=== PATIENT | male | born 1955 | race Hispanic/Latino ===

== ENCOUNTER 2021-04-19 08:59 | Observation (INO) | payer MEDICARE ==
[2021-04-19] MEDS ORDERED: NITROGLYCERIN 0.4 MG TAB SUBL SL ONE (09:28)
[2021-04-19] MEDS ORDERED: SODIUM CHLORIDE 0.9% 1000 ML 1,000 ML IV ONE (09:28)
[2021-04-19] MEDS ORDERED: LORazepam 2 MG/ML VIAL IV ONE (09:29)
--- NOTE | 2021-04-19 09:35 | Emergency Department Report ---
ED Chest Pain HPI - General Chief Complaint: Chest Pain Stated Complaint: CHEST PAIN Time Seen by Provider: 04/19/21 09:22 Source: EMS Mode of arrival: Stretcher Limitations: No Limitations - History of Present Illness Initial Comments: Patient presents secondary to chest pain. He is having left-sided chest pain. He describes an aching pain. It is in the left lateral chest. The pain does not radiate or migrate. It is not exertional, positional, or pleuritic. He does however state that this is similar to the pain he had when he had a heart attack decades ago. He is not recently seen cardiology. He has had no recent cardiac evaluation. Patient states that he had a heart attack approximately 35 years ago. He is 65. Patient states that this is the same pain he had. He is not having left arm pain. He has no nausea or vomiting. He does not feel short of breath. EMS administered aspirin and nitro. This did not alleviate the pain. He states that it started sometime last night or into this morning and has been constant. Severity scale (0 -10): 10 - Related Data Allergies Allergy/AdvReac Type Severity Reaction Status Date / Time No Known Allergies Allergy Verified 04/19/21 09:15 Heart Score - HEART Score History: Slightly suspicious EKG: Non-specific Age: > 65 Risk factors: > 3 risk factors or hx of atherosclerotic disease Troponin: < normal limit HEART Score: 5 - EKG Read Time Time EKG Completed: 09:09 EKG Read Time: 09:23 ED Review of Systems ROS: Stated complaint: CHEST PAIN Other details as noted in HPI Comment: All other systems reviewed and negative Constitutional: denies: fever Eyes: denies: vision change ENT: denies: throat pain Respiratory: denies: cough Cardiovascular: as per HPI Endocrine: denies: unexplained weight loss Gastrointestinal: denies: abdominal pain Genitourinary: denies: dysuria Musculoskeletal: denies: back pain Skin: denies: rash Neurological: denies: headache Hematological/Lymphatic: denies: easy bruising ED Past Medical Hx - Past Medical History Previous Medical History?: Yes Hx Hypertension: Yes Hx Heart Attack/AMI: Yes Hx COPD: Yes Additional medical history: [place]. Pancreatitis - Surgical History Past Surgical History?: Yes Additional Surgical History: cardiac stents - Family History Family history: hypertension - Social History Smoking Status: Never Smoker Substance Use Type: None, Other (Patient is an alcoholic. Last drink was 7 days ago.) ED Physical Exam - General Limitations: No Limitations, Other (Pulse ox noted and normal) General appearance: alert, in no apparent distress - Head Head exam: Present: atraumatic, normocephalic - Eye Eye exam: Present: normal appearance, PERRL, EOMI - ENT ENT exam: Present: normal orophraynx, normal external ear exam - Neck Neck exam: Present: normal inspection. Absent: meningismus - Respiratory Respiratory exam: Present: normal lung sounds bilaterally. Absent: respiratory distress - Cardiovascular Cardiovascular Exam: Present: regular rate, normal rhythm - GI/Abdominal GI/Abdominal exam: Present: soft. Absent: distended, tenderness - Extremities Exam Extremities exam: Present: normal capillary refill. Absent: pedal edema, calf tenderness - Back Exam Back exam: Absent: CVA tenderness (R), CVA tenderness (L) - Neurological Exam Neurological exam: Present: alert, oriented X3, CN II-XII intact, normal gait, other (Diffuse tremor is noted). Absent: motor sensory deficit - Psychiatric Psychiatric exam: Present: normal affect, normal mood - Skin Skin exam: Present: warm, dry ED Course Vital Signs 04/19/21 04/19/21 04/19/21 09:07 09:12 09:15 Temperature Pulse Rate 65 60 60 Respiratory 18 10 L Rate Blood Pressure Blood Pressure 193/110 [Right] O2 Sat by Pulse 98 99 Oximetry 04/19/21 04/19/21 04/19/21 09:27 09:29 09:31 Temperature 98.1 F Pulse Rate 53 L Respiratory 9 L Rate Blood Pressure 170/89 Blood Pressure [Right] O2 Sat by Pulse 98 99 Oximetry 04/19/21 09:45 Temperature Pulse Rate 54 L Respiratory 14 Rate Blood Pressure 148/80 Blood Pressure [Right] O2 Sat by Pulse 98 Oximetry - Reevaluation(s) Reevaluation #1: 04/19/21 09:35 EKG have been noted. Labs were ordered. Old records reviewed. Reevaluation #2: 04/19/21 12:27 Repeat troponin has been noted. Heart score is 5. We will proceed with admission. CHIRAG score - Chirag Score Age > 65: (1) Yes Aspirin use within the Past 7 Days: (0) No 3 or more CAD Risk Factors: (1) Yes 2 or more Angina events in past 24 hrs: (0) No Known CAD with more than 50% Stenosis: (0) No Elevated Cardiac Markers: (0) No ST Deviation Greater than 0.5mm: (0) No CHIRAG Score: 2 ED Medical Decision Making - Lab Data Result diagrams: 04/19/21 09:48 04/19/21 09:48 Rhythm strip: Sinus bradycardia without ectopy per monitor observe 10 seconds. - EKG Data -: EKG Interpreted by Me - EKG Data When compared to previous EKG there are: previous EKG unavailable 04/19/21 09:57 0909-EKG shows sinus bradycardia 59. Intervals are normal including a QRS of 93 and a QT corrected of 131. Patient has no ST elevation to suggest STEMI. There is no ST depression suggestive of ischemia. There is T wave flattening in 1 and aVL. Patient has T wave flattening in V1 and V2. There is no old EKG for comparison. - Radiology Data Radiology results: report reviewed - Medical Decision Making Patient presented secondary to left-sided chest pain. Etiology for this is unclear. He does have an elevated heart score and risk for ACS although there is no evidence of STEMI or NSTEMI at this time. He does not have history of travel or immobility suggestive of pulmonary embolism. There was no radiographic evidence of pneumonia or pneumothorax. He does not have a pulse deficit or wide mediastinum that was suggest aortic dissection. Case was discussed with the hospitalist who will admit. Critical care attestation.: If time is entered above; I have spent that time in minutes in the direct care of this critically ill patient, excluding procedure time. ED Disposition Clinical Impression: Left-sided chest pain Disposition: ADMITTED INPATIENT Is pt being admited?: Yes Condition: Stable
--- NOTE | 2021-04-19 09:55 | XRay Report ---
CHEST 1 VIEW 04/19/2021 8:45 AM INDICATION / CLINICAL INFORMATION: cp. COMPARISON: None available. FINDINGS: SUPPORT DEVICES: None. HEART / MEDIASTINUM: No significant abnormality. LUNGS / PLEURA: No significant pulmonary or pleural abnormality. No pneumothorax. ADDITIONAL FINDINGS: No significant additional findings. IMPRESSION: 1. No acute findings. Signer Name: Kuldeep Clarke DO Signed: 04/19/2021 9:51 AM Workstation Name: [id number]
[2021-04-19] MEDS ORDERED: THIAMINE 100 MG in SODIUM CHLORIDE 0.9% 50 ML IV ONE (10:30)
[2021-04-19 10:42] LABS: Basophils % (Auto) 0.4 % (0.0-1.8); Eosinophils # (Auto) 0.1 K/mm3 (0.0-0.4); Eosinophils % (Auto) 1.7 % (0.0-4.3); Hematocrit 36.3 % (35.5-45.6); Lymphocytes # (Auto) 0.9 K/mm3 (1.2-5.4); Lymphocytes % (Auto) 14.2 % (13.4-35.0); Mean Corpuscular HGB Conc 33 % (32-34); Mean Corpuscular Volume 96 fl (84-94); Monocytes # (Auto) 0.6 K/mm3 (0.0-0.8); Platelet Count 279 K/mm3 (140-440); Red Blood Count 3.77 M/mm3 (3.65-5.03)
[2021-04-19 11:10] LABS: Alanine Aminotransferase 12 units/L (7-56); Albumin 4.1 g/dL (3.9-5); Blood Urea Nitrogen 11 mg/dL (9-20); Calcium 9.5 mg/dL (8.4-10.2); Hemolysis Index 80
[2021-04-19 11:11] LABS: BUN/Creatinine Ratio 22
--- NOTE | 2021-04-19 12:31 | History and Physical Report ---
History of Present Illness Date of examination: 04/19/21 Date of admission: April 19, 2021 Chief complaint: Chest pain since a.m. History of present illness: 65-year-old male with history of hypertension, coronary artery disease, COPD and episode of pancreatitis, also history of cardiac stents presents with chest pain since a.m. Chest pain is retrosternal. Nonradiating. No diaphoresis no shortness of breath. Patient has been noncompliant with his medications. Chest pain is about 6 on a scale of 1-10. Intermittent in nature. No exacerbating or precipitating factors. Chest pain is dull in nature. No fever or chills. No exposure to Covid. Heart Score - HEART Score History: Slightly suspicious EKG: Non-specific Age: > 65 Risk factors: > 3 risk factors or hx of atherosclerotic disease Troponin: < normal limit HEART Score: 5 - EKG Read Time Time EKG Completed: 09:09 EKG Read Time: 09:23 - Past Medical History --Previous Medical History?: Yes --Hypertension: Yes --Heart Attack/AMI: Yes --COPD: Yes --Additional medical history: [place]. Pancreatitis - Surgical History --Past Surgical History?: Yes --Additional Surgical History: cardiac stents - Family History --Family history: hypertension - Social History --Smoking Status: Never Smoker --Substance Use Type: None, Other (Patient is an alcoholic. Last drink was 7 days ago.) Review of Systems ROS: Stated complaint: CHEST PAIN Other details as noted in HPI Comment: All other systems reviewed and negative Constitutional: denies: fever Eyes: denies: vision change ENT: denies: throat pain Respiratory: denies: cough Cardiovascular: as per HPI Endocrine: denies: unexplained weight loss Gastrointestinal: denies: abdominal pain Genitourinary: denies: dysuria Musculoskeletal: denies: back pain Skin: denies: rash Neurological: denies: headache Hematological/Lymphatic: denies: easy bruising Medications and Allergies Allergies Allergy/AdvReac Type Severity Reaction Status Date / Time No Known Allergies Allergy Verified 04/19/21 09:15 Exam - Constitutional Vitals: Temp Pulse Resp BP Pulse Ox 98.1 F 54 L 14 148/80 98 04/19/21 09:27 04/19/21 09:45 04/19/21 09:45 04/19/21 09:45 04/19/21 09:45 General appearance: Present: no acute distress, well-nourished - EENT Eyes: Present: PERRL ENT: hearing intact, clear oral mucosa - Neck Neck: Present: supple, normal ROM - Respiratory Respiratory effort: normal Respiratory: bilateral: CTA - Cardiovascular Heart rate: 78 Rhythm: regular Heart Sounds: Present: S1 & S2. Absent: rub, click - Extremities Extremities: no ischemia, pulses intact, pulses symmetrical, No edema Peripheral Pulses: within normal limits - Abdominal General gastrointestinal: Present: soft, non-tender, non-distended, normal bowel sounds Male genitourinary: Present: normal - Integumentary Integumentary: Present: clear, warm, dry - Musculoskeletal Musculoskeletal: gait normal, strength equal bilaterally - Psychiatric Psychiatric: appropriate mood/affect, intact judgment & insight - Neurologic Neurologic: CNII-XII intact, moves all extremities - Allied Health Allied health notes reviewed: nursing, case management HEART Score - HEART Score EKG: Non-specific Age: > 65 Risk factors: > 3 risk factors or hx of atherosclerotic disease Troponin: Troponin T < 0.010 ng/mL (0.00-0.029) 04/19/21 11:51 Troponin: 1-3x normal limit - Critical Actions Critical Actions: 4-6 pts:12-16.6% risk of adverse cardiac event. Should be admitted Results - Labs CBC & Chem 7: 04/19/21 09:48 04/19/21 09:48 Labs: Laboratory Last Values WBC 6.3 K/mm3 (4.5-11.0) 04/19/21 09:48 RBC 3.77 M/mm3 (3.65-5.03) 04/19/21 09:48 Hgb 12.0 gm/dl (11.8-15.2) 04/19/21 09:48 Hct 36.3 % (35.5-45.6) 04/19/21 09:48 MCV 96 fl (84-94) H 04/19/21 09:48 MCH 32 pg (28-32) 04/19/21 09:48 MCHC 33 % (32-34) 04/19/21 09:48 RDW 14.0 % (13.2-15.2) 04/19/21 09:48 Plt Count 279 K/mm3 (140-440) 04/19/21 09:48 Lymph % (Auto) 14.2 % (13.4-35.0) 04/19/21 09:48 [place] % (Auto) 9.0 % (0.0-7.3) H 04/19/21 09:48 Eos % (Auto) 1.7 % (0.0-4.3) 04/19/21 09:48 Baso % (Auto) 0.4 % (0.0-1.8) 04/19/21 09:48 Lymph # (Auto) 0.9 K/mm3 (1.2-5.4) L 04/19/21 09:48 [place] # (Auto) 0.6 K/mm3 (0.0-0.8) 04/19/21 09:48 Eos # (Auto) 0.1 K/mm3 (0.0-0.4) 04/19/21 09:48 Baso # (Auto) 0.0 K/mm3 (0.0-0.1) 04/19/21 09:48 Seg Neutrophils % 74.7 % (40.0-70.0) H 04/19/21 09:48 Seg Neutrophils # 4.7 K/mm3 (1.8-7.7) 04/19/21 09:48 Sodium 140 mmol/L (137-145) 04/19/21 09:48 Potassium 4.2 mmol/L (3.6-5.0) 04/19/21 09:48 Chloride 103.8 mmol/L (98-107) 04/19/21 09:48 Carbon Dioxide 22 mmol/L (22-30) 04/19/21 09:48 Anion Gap 18 mmol/L 04/19/21 09:48 BUN 11 mg/dL (9-20) 04/19/21 09:48 Creatinine 0.5 mg/dL (0.8-1.3) L 04/19/21 09:48 Estimated GFR > 60 ml/min 04/19/21 09:48 BUN/Creatinine Ratio 22 % 04/19/21 09:48 Glucose 98 mg/dL (75-100) 04/19/21 09:48 Calcium 9.5 mg/dL (8.4-10.2) 04/19/21 09:48 Magnesium 2.10 mg/dL (1.7-2.3) 04/19/21 09:48 Total Bilirubin 0.50 mg/dL (0.1-1.2) 04/19/21 09:48 AST 25 units/L (5-40) 04/19/21 09:48 ALT 12 units/L (7-56) 04/19/21 09:48 Alkaline Phosphatase 94 units/L (35-129) 04/19/21 09:48 Troponin T < 0.010 ng/mL (0.00-0.029) 04/19/21 11:51 Total Protein 7.1 g/dL (6.3-8.2) 04/19/21 09:48 Albumin 4.1 g/dL (3.9-5) 04/19/21 09:48 Albumin/Globulin Ratio 1.4 % 04/19/21 09:48 Lipase 21 units/L (13-60) 04/19/21 09:48 - Imaging and Cardiology EKG: report reviewed (Sinus rhythm no acute ST-T wave changes) Assessment and Plan Advance Directives: Yes (full code) - Patient Problems (1) ACS (acute coronary syndrome) Current Visit: Yes Status: Acute Plan to address problem: Serial troponins Mary Jane is not available on Saturdays and Sundays We will discharge him tomorrow if troponins are negative We will schedule her stress test as outpatient Follow-up with [facility] who are on-call today (2) HTN (hypertension) Current Visit: Yes Status: Chronic Qualifiers: Hypertension type: primary hypertension Qualified Code(s): I10 - Essential (primary) hypertension Plan to address problem: Continue antihypertensives and adjust medications as necessary (3) CAD (coronary artery disease) Current Visit: Yes Status: Chronic Qualifiers: Coronary Disease-Associated Artery/Lesion type: [place] artery [place] vs. transplanted heart: [place] heart Plan to address problem: Patient has cardiac stents in the past Continue aspirin and Plavix (4) COPD (chronic obstructive pulmonary disease) Current Visit: Yes Status: Chronic Qualifiers: COPD type: unspecified COPD Qualified Code(s): J44.9 - Chronic obstructive pulmonary disease, unspecified Plan to address problem: DuoNebs as needed (5) Hyperlipidemia Current Visit: Yes Status: Chronic Qualifiers: Hyperlipidemia type: mixed hyperlipidemia Qualified Code(s): E78.2 - Mixed hyperlipidemia Plan to address problem: Continue statins (6) DVT prophylaxis Current Visit: Yes Status: Acute Plan to address problem: On heparin and GI prophylaxis (7) Advance care planning Current Visit: Yes Status: Acute Plan to address problem: Disease education conducted, care plan discussed, diagnosis discussed, prognosis discussed with the patient. Patient is full code. Patient acknowledges understanding and agreement with care plan. +30 minutes.
[2021-04-19] MEDS ORDERED: ONDANSETRON 4 MG/2 ML INJ IV PRN (13:00)
[2021-04-19] MEDS ORDERED: ACETAMINOPHEN 325 MG TAB PO PRN (13:00)
[2021-04-19] MEDS: MORPHINE 2 MG/1 ML INJ IV PRN ×2 (15:47→19:44)
[2021-04-19] MEDS: SODIUM CHLORIDE 0.9% 1000 ML 1,000 ML IV SCH (20:14)
[2021-04-20] MEDS: oxyCODONE /ACETAMINOPHEN 5-325MG TAB PO PRN ×3 (00:30→16:24)
[2021-04-20] MEDS: MORPHINE 2 MG/1 ML INJ IV PRN ×3 (05:55→20:26)
[2021-04-20] MEDS ORDERED: IPRATROPIUM/ALBUTEROL SULFATE 3 ML AMPUL.NEB IH SCH (09:00)
[2021-04-20] MEDS: LOSARTAN 50 MG TAB PO SCH (09:02)
[2021-04-20 09:06] LABS: Basophils % (Auto) 0.7 % (0.0-1.8); Eosinophils # (Auto) 0.1 K/mm3 (0.0-0.4); Eosinophils % (Auto) 2.4 % (0.0-4.3); Hematocrit 38.1 % (35.5-45.6); Hemoglobin 12.6 gm/dl (11.8-15.2); Lymphocytes % (Auto) 19.6 % (13.4-35.0); Mean Corpuscular HGB Conc 33 % (32-34); Mean Corpuscular Volume 96 fl (84-94); Monocytes # (Auto) 0.4 K/mm3 (0.0-0.8); Monocytes % (Auto) 8.5 % (0.0-7.3); Platelet Count 243 K/mm3 (140-440); Red Blood Count 3.97 M/mm3 (3.65-5.03); Red Cell Distribution Width 13.9 % (13.2-15.2)
[2021-04-20 09:21] LABS: Alanine Aminotransferase 12 units/L (7-56); Albumin 4.1 g/dL (3.9-5); Blood Urea Nitrogen 7 mg/dL (9-20); Calcium 9.2 mg/dL (8.4-10.2); Hemolysis Index 3
[2021-04-20 09:22] LABS: BUN/Creatinine Ratio 14
--- NOTE | 2021-04-20 09:37 | Electrocardiograph Report ---
[facility] Test Date: 2021-04-19 Test Time: 09:09:14 Pat Name: MERARI JONES Department: Room: A486 Gender: M Production Grader: MARIBELL : 1955 Requested By: MARC PATTERSON Order Number: [id number] Reading MD: Jesus Harley Measurements Intervals [place] Rate: 59 P: 0 [place]: 79 QRS: 52 QRSD: 93 T: 73 QT: 425 QTc: 421 Interpretive Statements Sinus bradycardia No previous ECG available for comparison Electronically Signed On 04-20-2021 9:36:45 EST by Jesus Harley
[2021-04-20] MEDS ORDERED: CLOPIDOGREL 75 MG TAB PO SCH (10:00)
[2021-04-20] MEDS ORDERED: ASPIRIN 325 MG TAB PO SCH (10:00)
[2021-04-20] MEDS: SODIUM CHLORIDE 0.9% 1000 ML 1,000 ML IV SCH (10:00)
--- NOTE | 2021-04-20 15:13 | Consultation ---
History of Present Illness Consult date: 04/20/21 Consult reason: chest pain History of present illness: Patient is a 65-year-old man with chronic alcohol abuse, and chronic pancreat itis, admitted to the hospital with chest pain. He describes left-sided chest pain, localized to the lower rib cage, and the anterior axillary line. The pain was nonexertional but instead positional. There was no pleuritic component. There is no unusual shortness of breath, no palpitations and no edema. Cardiology consultation was requested for chest pain assessment. The patient gives a history of coronary artery disease, states that 30 years ago he had a myocardial infarction followed by coronary stent placement in September. Since then, he has had no significant cardiac follow-up, has had no cardiac complaints. He currently is comfortable in his telemetry room, no further chest pain or shortness of breath, but appears to be anxious and distressed over his social situation including his chronic alcoholism or his current residence in a skilled nursing house. ECG is normal sinus rhythm, first-degree AV block, left ventricle hypertrophy by voltage criteria. Serial troponin levels were negative x2. Chest x-ray demonstrates normal size cardiac silhouette and clear lungs. Past History Past Medical History: CAD, other (Chronic alcoholism, chronic pancreatitis) Medications and Allergies Allergies Allergy/AdvReac Type Severity Reaction Status Date / Time No Known Allergies Allergy Verified 04/19/21 09:15 Active Meds: Active Medications Acetaminophen (Acetaminophen 325 Mg Tab) 650 mg PO Q4H PRN PRN Reason: Pain MILD(1-3)/Fever >100.5/[place] Albuterol/Ipratropium (Ipratropium/Albuterol Sulfate 3 Ml Ampul.Neb) 1 ampul IH Q3HRT [facility] Aspirin (Aspirin 325 Mg Tab) 325 mg PO QDAY [facility] Last Admin: 04/20/21 09:03 Dose: 325 mg Clopidogrel Bisulfate (Clopidogrel 75 Mg Tab) 75 mg PO QDAY [facility] Last Admin: 04/20/21 09:03 Dose: 75 mg Sodium Chloride (Nacl 0.9% 1000 Ml) 1,000 mls @ 75 mls/hr IV DIRECT [facility] Last Admin: 04/20/21 10:00 Dose: 75 mls/hr Losartan Potassium (Losartan 50 Mg Tab) 25 mg PO QDAY [facility] Last Admin: 04/20/21 09:02 Dose: 25 mg Morphine Sulfate (Morphine 2 Mg/1 Ml Inj) 2 mg IV Q4H PRN PRN Reason: Pain, Moderate (4-6) Last Admin: 04/20/21 12:45 Dose: 2 mg Ondansetron HCl (Ondansetron 4 Mg/2 Ml Inj) 4 mg IV Q8H PRN PRN Reason: Nausea And Vomiting Oxycodone/Acetaminophen (Oxycodone /Acetaminophen 5-325mg Tab) 1 tab PO Q6H PRN PRN Reason: Pain, Moderate (4-6) Last Admin: 04/20/21 09:02 Dose: 1 tab Sodium Chloride (Sodium Chloride 0.9% 10 Ml Flush Syringe) 10 ml IV BID PAULA Last Admin: 04/20/21 09:01 Dose: 10 ml Sodium Chloride (Sodium Chloride 0.9% 10 Ml Flush Syringe) 10 ml IV PRN PRN PRN Reason: LINE FLUSH Review of Systems Cardiovascular: chest pain, no orthopnea, no palpitations, no rapid/irregular heart beat, no edema, no syncope, no lightheadedness, no shortness of breath Physical Examination Vital Signs Pulse Resp BP Pulse Ox 65 18 193/110 98 04/19/21 09:07 04/19/21 09:07 04/19/21 09:07 04/19/21 09:07 General appearance: no acute distress HEENT: Positive: PERRL Neck: Positive: neck supple Cardiac: Positive: Reg Rate and Rhythm Lungs: Positive: Decreased Breath Sounds Neuro: Positive: Grossly Intact Abdomen: Positive: Soft Male genitourinary: Positive: deferred Skin: Positive: Clear Extremities: Absent: edema Results 04/20/21 08:31 04/20/21 08:31 Cardiac Enzymes 04/20/21 Range/Units 08:31 AST 17 (5-40) units/L CBC 04/20/21 Range/Units 08:31 WBC 5.3 (4.5-11.0) K/mm3 RBC 3.97 (3.65-5.03) M/mm3 Hgb 12.6 (11.8-15.2) gm/dl Hct 38.1 (35.5-45.6) % Plt Count 243 (140-440) K/mm3 Lymph # (Auto) 1.0 L (1.2-5.4) K/mm3 [place] # (Auto) 0.4 (0.0-0.8) K/mm3 Eos # (Auto) 0.1 (0.0-0.4) K/mm3 Baso # (Auto) 0.0 (0.0-0.1) K/mm3 Comprehensive Metabolic Panel 04/20/21 Range/Units 08:31 Sodium 137 (137-145) mmol/L Potassium 3.7 (3.6-5.0) mmol/L Chloride 102.1 (98-107) mmol/L Carbon Dioxide 21 L (22-30) mmol/L BUN 7 L (9-20) mg/dL Creatinine 0.5 L (0.8-1.3) mg/dL Glucose 100 (75-100) mg/dL Calcium 9.2 (8.4-10.2) mg/dL AST 17 (5-40) units/L ALT 12 (7-56) units/L Alkaline Phosphatase 93 (35-129) units/L Total Protein 6.8 (6.3-8.2) g/dL Albumin 4.1 (3.9-5) g/dL EKG interpretations - Telemetry EKG Rhythm: Sinus Rhythm Assessment and Plan - Patient Problems (1) Chest pain Current Visit: Yes Status: Acute Plan to address problem: Patient is chest pain is atypical, appears likely musculoskeletal per his description. Due to history of underlying coronary artery disease, we will proceed with a Lexiscan thallium stress test for further chest pain assessment. (2) CAD (coronary artery disease) Current Visit: Yes Status: Chronic Qualifiers: Coronary Disease-Associated Artery/Lesion type: [place] artery [place] vs. transplanted heart: [place] heart Plan to address problem: Patient reports a remote history of coronary artery disease and coronary stenti ng. For many years, he has been asymptomatic cardiac wall. We will place him on guideline directed medical therapy including a baby aspirin and a statin and a beta-tessa, order a Lexiscan thallium stress test.
[2021-04-20] MEDS: NIFEdipine XL 30 MG TAB PO SCH (16:24)
[2021-04-20] MEDS ORDERED: LORazepam 2 MG/ML VIAL IV PRN (17:00)
[2021-04-20] MEDS ORDERED: hydrALAZINE 20 MG/1 ML INJ IV PRN (17:00)
--- NOTE | 2021-04-20 17:11 | Progress Note ---
Assessment and Plan - Patient Problems (1) ACS (acute coronary syndrome) Current Visit: Yes Status: Acute Plan to address problem: Serial troponins Mary Jane is not available on Saturdays and Sundays We will discharge him tomorrow if troponins are negative We will schedule her stress test as outpatient Follow-up with [facility] who are on-call today (2) HTN (hypertension) Current Visit: Yes Status: Chronic Qualifiers: Hypertension type: primary hypertension Qualified Code(s): I10 - Essential (primary) hypertension Plan to address problem: Continue antihypertensives and adjust medications as necessary (3) CAD (coronary artery disease) Current Visit: Yes Status: Chronic Qualifiers: Coronary Disease-Associated Artery/Lesion type: [place] artery [place] vs. transplanted heart: [place] heart Plan to address problem: Patient has cardiac stents in the past Continue aspirin and Plavix (4) COPD (chronic obstructive pulmonary disease) Current Visit: Yes Status: Chronic Qualifiers: COPD type: unspecified COPD Qualified Code(s): J44.9 - Chronic obstructive pulmonary disease, unspecified Plan to address problem: DuoNebs as needed (5) Hyperlipidemia Current Visit: Yes Status: Chronic Qualifiers: Hyperlipidemia type: mixed hyperlipidemia Qualified Code(s): E78.2 - Mixed hyperlipidemia Plan to address problem: Continue statins (6) DVT prophylaxis Current Visit: Yes Status: Acute Plan to address problem: On heparin and GI prophylaxis (7) Advance care planning Current Visit: Yes Status: Acute Plan to address problem: Disease education conducted, care plan discussed, diagnosis discussed, prognosis discussed with the patient. Patient is full code. Patient acknowledges understanding and agreement with care plan. +30 minutes. Subjective Date of service: 04/20/21 Objective - Constitutional Vitals: Vital Signs - 12hr 04/20/21 04/20/21 04/20/21 05:55 08:44 10:00 Temperature 98.1 F Pulse Rate 54 L Respiratory 18 20 Rate Blood Pressure 172/91 O2 Sat by Pulse 93 98 Oximetry General appearance: Present: no acute distress, well-nourished - EENT Eyes: PERRL, EOM intact ENT: hearing intact, clear oral mucosa Ears: bilateral: normal - Neck Neck: supple, normal ROM - Respiratory Respiratory effort: normal Respiratory: bilateral: CTA - Breasts Breasts: normal - Cardiovascular Rhythm: regular Heart Sounds: Present: S1 & S2. Absent: gallop, rub Extremities: pulses intact, No edema, normal color, Full ROM - Gastrointestinal General gastrointestinal: Present: soft, non-tender, non-distended, normal bowel sounds - Genitourinary Male genitourinary: normal - Integumentary Integumentary: clear, warm, dry - Musculoskeletal Musculoskeletal: 1, strength equal bilaterally - Neurologic Neurologic: moves all extremities - Psychiatric Psychiatric: memory intact, appropriate mood/affect, intact judgment & insight - Labs CBC & Chem 7: 04/20/21 08:31 04/20/21 08:31 Labs: Abnormal lab results 04/20/21 04/20/21 Range/Units 08:31 08:31 MCV 96 H (84-94) fl [place] % (Auto) 8.5 H (0.0-7.3) % Lymph # (Auto) 1.0 L (1.2-5.4) K/mm3 Carbon Dioxide 21 L (22-30) mmol/L BUN 7 L (9-20) mg/dL Creatinine 0.5 L (0.8-1.3) mg/dL HEART Score - HEART Score EKG: Non-specific Age: > 65 Risk factors: > 3 risk factors or hx of atherosclerotic disease Troponin: Troponin T < 0.010 ng/mL (0.00-0.029) 04/20/21 13:37 Troponin: 1-3x normal limit - Critical Actions Critical Actions: 4-6 pts:12-16.6% risk of adverse cardiac event. Should be admitted
[2021-04-20] MEDS ORDERED: ALBUTEROL 2.5 MG/3 ML NEBU IH PRN (19:18)
[2021-04-20] MEDS: ALPRAZolam 1 MG TAB PO PRN (21:15)
[2021-04-20] MEDS: IPRATROPIUM/ALBUTEROL SULFATE 3 ML AMPUL.NEB IH SCH (21:59)
[2021-04-21] MEDS: MORPHINE 2 MG/1 ML INJ IV PRN (02:39)
[2021-04-21] MEDS ORDERED: REGADENOSON 0.4 MG/5 ML INJ IV ONE ×2 (08:39→08:40)
[2021-04-21] MEDS: IPRATROPIUM/ALBUTEROL SULFATE 3 ML AMPUL.NEB IH SCH ×2 (09:11→14:32)
--- NOTE | 2021-04-21 09:27 | Progress Note ---
Assessment and Plan Assessment and plan: (1) ACS (acute coronary syndrome) Current Visit: Yes Status: Acute Plan to address problem: Serial troponins Mary Jane is not available on Saturdays and Sundays We will discharge him tomorrow if troponins are negative We will schedule her stress test as outpatient Follow-up with [facility] who are on-call today (2) HTN (hypertension) Current Visit: Yes Status: Chronic Qualifiers: Hypertension type: primary hypertension Qualified Code(s): I10 - Essential (primary) hypertension Plan to address problem: Continue antihypertensives and adjust medications as necessary (3) CAD (coronary artery disease) Current Visit: Yes Status: Chronic Qualifiers: Coronary Disease-Associated Artery/Lesion type: [place] artery [place] vs. transplanted heart: [place] heart Plan to address problem: Patient has cardiac stents in the past Continue aspirin and Plavix (4) COPD (chronic obstructive pulmonary disease) Current Visit: Yes Status: Chronic Qualifiers: COPD type: unspecified COPD Qualified Code(s): J44.9 - Chronic obstructive pulmonary disease, unspecified Plan to address problem: DuoNebs as needed (5) Hyperlipidemia Current Visit: Yes Status: Chronic Qualifiers: Hyperlipidemia type: mixed hyperlipidemia Qualified Code(s): E78.2 - Mixed hyperlipidemia Plan to address problem: Continue statins (6) DVT prophylaxis Current Visit: Yes Status: Acute Plan to address problem: On heparin and GI prophylaxis (7) Advance care planning Current Visit: Yes Status: Acute Plan to address problem: Disease education conducted, care plan discussed, diagnosis discussed, prognosis discussed with the patient. Patient is full code. Patient acknowledges understanding and agreement with care plan. +30 minutes. Hospitalist Physical - Constitutional Vitals: Temp Pulse Resp BP Pulse Ox 97.8 F 57 L 16 164/90 95 04/21/21 03:41 04/21/21 04:00 04/21/21 03:41 04/21/21 03:41 04/21/21 03:41 General appearance: Present: no acute distress, well-nourished HEART Score - HEART Score EKG: Non-specific Age: > 65 Risk factors: > 3 risk factors or hx of atherosclerotic disease Troponin: Troponin T < 0.010 ng/mL (0.00-0.029) 04/20/21 13:37 Troponin: 1-3x normal limit - Critical Actions Critical Actions: 4-6 pts:12-16.6% risk of adverse cardiac event. Should be admitted Results - Labs CBC & Chem 7: 04/20/21 08:31 04/20/21 08:31 Labs: Laboratory Last Values WBC 5.3 K/mm3 (4.5-11.0) 04/20/21 08:31 RBC 3.97 M/mm3 (3.65-5.03) 04/20/21 08:31 Hgb 12.6 gm/dl (11.8-15.2) 04/20/21 08: Hct 38.1 % (35.5-45.6) 04/20/21 08: MCV 96 fl (84-94) H 04/20/21 08: MCH 32 pg (28-32) 04/20/21 08: MCHC 33 % (32-34) 04/20/21 08: RDW 13.9 % (13.2-15.2) 04/20/21 08:31 Plt Count 243 K/mm3 (140-440) 04/20/21 08:31 Lymph % (Auto) 19.6 % (13.4-35.0) 04/20/21 08: [place] % (Auto) 8.5 % (0.0-7.3) H 04/20/21 08: Eos % (Auto) 2.4 % (0.0-4.3) 04/20/21 08: Baso % (Auto) 0.7 % (0.0-1.8) 04/20/21 08: Lymph # (Auto) 1.0 K/mm3 (1.2-5.4) L 04/20/21 08: [place] # (Auto) 0.4 K/mm3 (0.0-0.8) 04/20/21 08:31 Eos # (Auto) 0.1 K/mm3 (0.0-0.4) 04/20/21 08: Baso # (Auto) 0.0 K/mm3 (0.0-0.1) 04/20/21 08: Seg Neutrophils % 68.8 % (40.0-70.0) 04/20/21 08: Seg Neutrophils # 3.6 K/mm3 (1.8-7.7) 04/20/21 08:31 Sodium 137 mmol/L (137-145) 04/20/21 08:31 Potassium 3.7 mmol/L (3.6-5.0) 04/20/21 08:31 Chloride 102.1 mmol/L (98-107) 04/20/21 08:31 Carbon Dioxide 21 mmol/L (22-30) L 04/20/21 08:31 Anion Gap 18 mmol/L 04/20/21 08:31 BUN 7 mg/dL (9-20) L 04/20/21 08:31 Creatinine 0.5 mg/dL (0.8-1.3) L 04/20/21 08:31 Estimated GFR > 60 ml/min 04/20/21 08:31 BUN/Creatinine Ratio 14 % 04/20/21 08:31 Glucose 100 mg/dL (75-100) 04/20/21 08:31 Calcium 9.2 mg/dL (8.4-10.2) 04/20/21 08:31 Magnesium 2.10 mg/dL (1.7-2.3) 04/19/21 09:48 Total Bilirubin 0.50 mg/dL (0.1-1.2) 04/20/21 08:31 AST 17 units/L (5-40) 04/20/21 08:31 ALT 12 units/L (7-56) 04/20/21 08:31 Alkaline Phosphatase 93 units/L (35-129) 04/20/21 08:31 Troponin T < 0.010 ng/mL (0.00-0.029) 04/20/21 13:37 Total Protein 6.8 g/dL (6.3-8.2) 04/20/21 08:31 Albumin 4.1 g/dL (3.9-5) 04/20/21 08:31 Albumin/Globulin Ratio 1.5 % 04/20/21 08:31 Lipase 21 units/L (13-60) 04/19/21 09:48 Bender/IV: Voiding Method Toilet Active Medications - Current Medications Current Medications: Generic Name Dose Route Start Last Admin Trade Name Freq PRN Reason Stop Dose Admin Acetaminophen 650 mg 04/19/21 13:00 Acetaminophen 325 Mg Tab PO Q4H PRN Pain MILD(1-3)/Fever >100.5/HARRIS Albuterol 2.5 mg 04/20/21 19:18 Albuterol 2.5 Mg/3 Ml Nebu IH Q4HRT PRN Shortness Of Breath Albuterol/Ipratropium 1 ampul 04/20/21 20:00 04/21/21 09:11 Ipratropium/Albuterol Sulfate 3 Ml Ampul.Neb IH Not Given TIDRT PAULA Alprazolam 1 mg 04/20/21 20:42 04/20/21 21:15 Alprazolam 1 Mg Tab PO 1 mg Q8H PRN Administration Anxiety Aspirin 81 mg 04/21/21 10:00 Aspirin Ec 81 Mg Tab PO QDAY PAULA Atorvastatin Calcium 40 mg 04/20/21 22:00 04/20/21 21:15 Atorvastatin 40 Mg Tab PO 40 mg QHS PAULA Administration Hydralazine HCl 10 mg 04/20/21 17:00 Hydralazine 20 Mg/1 Ml Inj IV Q3H PRN Blood Pressure Lorazepam 2 mg 04/20/21 17:00 04/21/21 03:07 Lorazepam 2 Mg/Ml Vial IV 2 mg Q1H PRN Administration CIWA-Ar 8-15 Losartan Potassium 25 mg 04/20/21 10:00 04/20/21 09:02 Losartan 50 Mg Tab PO 25 mg QDAY PAULA Administration Morphine Sulfate 2 mg 04/19/21 13:00 04/21/21 02:39 Morphine 2 Mg/1 Ml Inj IV 2 mg Q4H PRN Administration Pain, Moderate (4-6) Nifedipine 30 mg 04/20/21 16:00 04/20/21 16:24 Nifedipine Xl 30 Mg Tab PO 30 mg QDAY PAULA Administration Ondansetron HCl 4 mg 04/19/21 13:00 Ondansetron 4 Mg/2 Ml Inj IV Q8H PRN Nausea And Vomiting Oxycodone/Acetaminophen 1 tab 04/19/21 13:00 04/20/21 16:24 Oxycodone /Acetaminophen 5-325mg Tab PO 1 tab Q6H PRN Administration Pain, Moderate (4-6) Sodium Chloride 10 ml 04/19/21 22:00 04/21/21 02:41 Sodium Chloride 0.9% 10 Ml Flush Syringe IV 10 ml BID PAULA Administration Sodium Chloride 10 ml 04/19/21 13:00 Sodium Chloride 0.9% 10 Ml Flush Syringe IV PRN PRN LINE FLUSH
[2021-04-21] MEDS ORDERED: ASPIRIN EC 81 MG TAB PO SCH (10:00)
[2021-04-21] MEDS: oxyCODONE /ACETAMINOPHEN 5-325MG TAB PO PRN ×2 (11:28→16:30)
[2021-04-21] MEDS: NIFEdipine XL 30 MG TAB PO SCH (11:28)
[2021-04-21] MEDS: LOSARTAN 50 MG TAB PO SCH (11:29)
[2021-04-21] MEDS: ALPRAZolam 1 MG TAB PO PRN (11:30)
--- NOTE | 2021-04-21 11:53 | Progress Note ---
Assessment and Plan - Patient Problems (1) Chest pain Current Visit: Yes Status: Acute Plan to address problem: Patient is chest pain is atypical, appears likely musculoskeletal per his description. Lexiscan stress test completed, results pending. (2) CAD (coronary artery disease) Current Visit: Yes Status: Chronic Qualifiers: Coronary Disease-Associated Artery/Lesion type: [place] artery [place] vs. transplanted heart: [place] heart Plan to address problem: Patient reports a remote history of coronary artery disease and coronary stenting dating back to 30 years by his account. We will place him on guideline directed medical therapy including a baby aspirin and a statin and a beta- tessa as tolerated. Subjective Date of service: 04/21/21 Principal diagnosis: Chest pain Interval history: Patient is comfortable, no further chest pain, no cardiac complaints. No new cardiac events reported. Today, he underwent a Lexiscan thallium stress test, completed, results pending. Objective Vital Signs Temp Pulse Resp BP Pulse Ox 04/21/21 11:29 86 04/21/21 10:11 137/75 04/21/21 10:09 138/81 04/21/21 10:07 152/77 04/21/21 09:23 149/83 04/21/21 04:00 57 L 04/21/21 03:41 97.8 F 65 16 164/90 95 04/21/21 03:09 20 04/20/21 23:26 98.2 F 67 16 141/78 96 04/20/21 22:00 95 04/20/21 21:59 95 04/20/21 20:56 20 04/20/21 20:26 20 04/20/21 20:00 60 04/20/21 19:43 98.1 F 60 16 157/86 94 04/20/21 16:11 98.3 F 50 L 202/101 97 - Physical Examination General: No Apparent Distress HEENT: Positive: PERRL Neck: Positive: neck supple Cardiac: Positive: Reg Rate and Rhythm Lungs: Positive: Decreased Breath Sounds Neuro: Positive: Grossly Intact Abdomen: Positive: Soft Skin: Positive: Clear Extremities: Absent: edema - Imaging and Cardiology EKG: report reviewed (Sinus rhythm no acute ST-T wave changes)
--- NOTE | 2021-04-21 12:09 | Nuclear Medicine Report ---
APPROVED REPORT Exam: Nuclear Stress Test Indication: Chest pain Patient Location: -TELEMETRY Room #: [id number] Ht: 6 ft 3 in Wt: 295 lbs BSA: 2.59 m2 HR: 67 bpmBP: 149/83 mmHgBMI: 36.86 Rhythm: SINUS RHYTHM WITH FIRST DEGREE AV BLOCK Stress Test Details Stress Test: Pharmacologic stress testing performed using 0.4 mg of regadenoson per 5 mL given IV over 10 seconds. Reason for pharmacologic stress test: physical limitation. HR Resting HR: 67 bpm Max HR Achieved: 101 bpm Max Heart Rate (APMHR): 153 bpm Target HR (85% APMHR): 130 bpm % of APMHR: 66 Recovery HR: 89 bpm BP Resting BP: 149/83 mmHg Max BP: 152/77 mmHg Recovery BP: 137/75 mmHg ECG Resting ECG: SINUS RHYTHM WITH FIRST DEGREE AV BLOCK Stress ECG: SINUS RHYTHM WITH FIRST DEGREE AV BLOCK ST Change: None Arrhythmia: None Recovery ECG: SINUS RHYTHM , WITH FIRST DEGREE AV block Recovery ST Change: None Recovery Arrhythmia: None Clinical Reason for Termination: Completed protocol Stress Symptoms: None Stress ECG Conclusion No chest pain, no ST changes of ischemia with pharmacologic stress, myocardial perfusion images are dictated separately. NM EXAM: Myocardial Perfusion REST/STRESS Imaging Protocol: Rest Tc-99m/Stress Tc-99m 1 day Resting Data Rest SPECT myocardial perfusion imaging was performed in supine position 45 minutes following the intravenous injection of 10 mCi of Tc-99m Myoview. Time of rest injection: 0730 Pharmacologic Stress Pharmacologic stress test was performed by injecting Regadenoson 0.4 mg IV push followed by the intravenous injection of 28 mCi of Tc-99m Myoview. Time of stress injection: 1008 Gated Stress SPECT was performed 30 minutes after stress injection. The images were gated to evaluate regional wall motion and calculate left ventricular ejection fraction. Study Quality Study: excellent Lung Uptake: Normal Study Data TID = 1.04. Perfusion Wall Motion There is normal left ventricular systolic function with ejection fraction 61%. Nuclear Conclusion ECG Findings: negative for ischemia Clinical Findings: negative for ischemia Nuclear Findings: negative for ischemia Left Ventricular Function: normal Risk Study: low The myocardial perfusion images are normal on both rest and stress images, normal left ventricular systolic function, ejection fraction 61%. Normal study. Conclusion No chest pain, no ST changes of ischemia with pharmacologic stress, myocardial perfusion images are dictated separately.
--- NOTE | 2021-04-21 14:49 | Discharge Summary ---
Providers - Providers Date of Admission: 04/19/21 12:39 Date of discharge: 04/21/21 Attending physician: ODALYS HERNANDEZ 04/20/21 07:35 Consult to Physician [CONS] Routine Comment: Consulting Provider: DAVI LANCE Physician Instructions: Reason For Exam: ACS Primary care physician: FURNACE INSTALLER Hospitalization Reason for admission: Atypical chest pain Condition: Stable Pertinent studies: Echocardiogram; EF 55% Stress test no evidence of ischemia, ejection fraction 61% Chest x-ray no acute abnormality Hospital course: 65-year-old male patient with significant past medical history of chronic alcohol use chronic pancreatitis history of coronary artery disease s/p PCI 30 years ago was admitted through emergency room with atypical chest pain patient was admitted symptomatically managed subsequently evaluated by cardiology next patient has multiple risk factors patient underwent Lexiscan stress test which was negative for his reversible ischemia and with normal left ventricular function cardiology recommended optimize the medication counseling done and strongly advised to quit alcohol intake patient also advised to cardiac medications and follow-up with primary care physician per schedule and virtualization engineer as needed patient is stable at discharge Patient's chest pain is noncardiac progress musculoskeletal, advised pain medications per schedule Stable Discharge diagnosis: Atypical chest pain/ ACS (acute coronary syndrome) Current Visit: Yes Status: Acute Plan to address problem: Serial troponins Lexiscan is not available on Saturdays and Sundays We will discharge him tomorrow if troponins are negative We will schedule her stress test as outpatient Follow-up with [facility] who are on-call today (2) HTN (hypertension) Current Visit: Yes Status: Chronic Qualifiers: Hypertension type: primary hypertension Qualified Code(s): I10 - Essential (primary) hypertension Plan to address problem: Continue antihypertensives and adjust medications as necessary (3) CAD (coronary artery disease) Current Visit: Yes Status: Chronic Qualifiers: Coronary Disease-Associated Artery/Lesion type: [place] artery [place] vs. transplanted heart: [place] heart Plan to address problem: Patient has cardiac stents in the past Continue aspirin and Plavix (4) COPD (chronic obstructive pulmonary disease) Current Visit: Yes Status: Chronic Qualifiers: COPD type: unspecified COPD Qualified Code(s): J44.9 - Chronic obstructive pulmonary disease, unspecified Plan to address problem: DuoNebs as needed (5) Hyperlipidemia Current Visit: Yes Status: Chronic Qualifiers: Hyperlipidemia type: mixed hyperlipidemia Qualified Code(s): E78.2 - Mixed hyperlipidemia Plan to address problem: Continue statins discharge diagnosis Obesity; BMI 37.3 Disposition: 01 HOME / SELF CARE / HOMELESS Final Discharge Diagnosis (Prints w/discharge instructions): Atypical chest pain;. Negative stress test. History of coronary artery disease s/p PCI. Hypertension. Dyslipidemia. History of COPD. Obesity BMI 37.3 Time spent for discharge: 35 minutes Core Measure Documentation - Palliative Care Palliative Care/ Comfort Measures: Not Applicable - Core Measures Any of the following diagnoses?: none Exam - Constitutional Vitals: Temp Pulse Resp BP Pulse Ox 97.8 F 86 16 137/75 95 04/21/21 03:41 04/21/21 11:29 04/21/21 03:41 04/21/21 10:11 04/21/21 03:41 General appearance: Present: no acute distress, well-nourished - EENT Eyes: Present: PERRL, EOM intact - Neck Neck: Present: supple, normal ROM - Respiratory Respiratory effort: normal Respiratory: bilateral: diminished, negative: rales, rhonchi, wheezing - Cardiovascular Rhythm: regular Heart Sounds: Present: S1 & S2 - Extremities Extremities: no ischemia, No edema - Abdominal General gastrointestinal: Present: soft, non-tender, non-distended, normal bowel sounds - Integumentary Integumentary: Present: clear, warm - Musculoskeletal Musculoskeletal: strength equal bilaterally, generalized weakness - Psychiatric Psychiatric: appropriate mood/affect, cooperative - Neurologic Neurologic: moves all extremities Plan Activity: no restrictions Diet: other (Cardiac diet) Additional Instructions: Advised dietary modification, exercise as tolerated, and weight reduction when medically stable. If you have worsening symptoms contact MD or go to the nearest emergency room. Strongly weight advised to quit alcohol intake. Advised to follow primary care physician, virtualization engineer per schedule Follow up with: PRIMARY MD TALHA [Primary Care Provider] - 3-5 Days DAVI LANCE MD [Staff Physician] - 14 Days Prescriptions: Losartan [Cozaar] 25 mg PO QDAY #30 tablet Aspirin EC [Halfprin EC] 81 mg PO QDAY #30 tablet AtorvaSTATin [Lipitor] 40 mg PO QHS #30 tablet oxyCODONE /ACETAMINOPHEN [Percocet 5/325 mg] 1 tab PO BID PRN #6 tablet PRN Reason: Pain, Moderate (4-6) NIFEdipine XL [Procardia Xl] 30 mg PO QDAY #30 tablet
[2021-04-21 18:53] VITALS: BP 148/106
== END 2021-04-21 18:57 | disposition home or self-care (01) ==
LOC: ED 08:59 → 4A 12:39
PROVIDERS: ADMIT Internal Medicine; ATTEND Internal Medicine
DX: I24.9 Acute ischemic heart disease, unspecified (principal); I10 Essential (primary) hypertension; I25.10 Atherosclerotic heart disease of native coronary artery without angina pectoris; R07.89 Other chest pain; J44.9 Chronic obstructive pulmonary disease, unspecified; E78.2 Mixed hyperlipidemia; Z79.899 Other long term (current) drug therapy; Z98.890 Other specified postprocedural states; Z95.1 Presence of aortocoronary bypass graft
CPT/HCPCS: 36415; 71045; 78452; 80053; 82962; 83690; 83735; 84484; 85025; 93005; 93010; 93017; 96361; 96365; 96375; 96376; 99285; A9502; C8929; G0378; J2060; J2270; J2785; J3411; J7030; 93306; Q0162

== ENCOUNTER 2021-05-04 19:17 | Emergency (ER) | payer MEDICARE ==
--- NOTE | 2021-05-04 20:06 | Emergency Department Report ---
ED General Adult HPI - General Chief complaint: Extremity Problem,Nontraumatic Stated complaint: LEG SWOLLEN Time Seen by Provider: 05/04/21 19:51 Source: patient, EMS Mode of arrival: Stretcher Limitations: Physical Limitation - History of Present Illness Initial comments: Patient is 65 years old male with history of congestive heart failure and hypert ension. Patient presented to the ER complaining of bilateral lower extremity for the last few days. Patient stated that he has history of a swollen leg before but this is too much now. Patient stated that he is taking Lasix 20 mg but he admitted that he been drinking a lot of water recently. He denies any shortness of breath, chest pain, cough, fever or chills. Patient denies any other complaint. Severity scale (0 -10): 3 - Related Data Previous Rx's Medication Instructions Recorded Last Taken Type Aspirin EC [Halfprin EC] 81 mg PO QDAY #30 tablet 04/21/21 Unknown Rx AtorvaSTATin [Lipitor] 40 mg PO QHS #30 tablet 04/21/21 Unknown Rx Losartan [Cozaar] 25 mg PO QDAY #30 tablet 04/21/21 Unknown Rx NIFEdipine XL [Procardia Xl] 30 mg PO QDAY #30 tablet 04/21/21 Unknown Rx oxyCODONE /ACETAMINOPHEN [Percocet 1 tab PO BID PRN #6 tablet 04/21/21 Unknown Rx 5/325 mg] Allergies Allergy/AdvReac Type Severity Reaction Status Date / Time No Known Allergies Allergy Verified 04/19/21 09:15 ED Review of Systems ROS: Stated complaint: LEG SWOLLEN Other details as noted in HPI Comment: All other systems reviewed and negative Constitutional: denies: chills, fever Respiratory: denies: cough, shortness of breath, SOB with exertion, SOB at rest, wheezing Cardiovascular: denies: chest pain, palpitations Gastrointestinal: denies: abdominal pain, nausea, vomiting, diarrhea, constipation, hematemesis, melena, hematochezia Musculoskeletal: denies: back pain Neurological: denies: headache, weakness, numbness, paresthesias, confusion ED Past Medical Hx - Past Medical History Hx Hypertension: Yes Hx Heart Attack/AMI: Yes Hx Congestive Heart Failure: No Hx Diabetes: No Hx Deep Vein Thrombosis: No Hx Pulmonary Embolism: No Hx GERD: No Hx Liver Disease: No Hx Renal Disease: No Hx Sickle Cell Disease: No Hx Arthritis: No Hx Headaches / Migraines: No Hx Seizures: No Hx Kidney Stones: No Hx Asthma: No Hx COPD: No Hx Tuberculosis: No Hx Dementia: No Hx HIV: No Additional medical history: [place] Pancreatitis - Surgical History Hx Coronary Stent: No Hx Open Heart Surgery: No Hx Pacemaker: No Hx Internal Defibrillator: No Hx Cholecystectomy: No Hx Appendectomy: No Hx Breast Surgery: No Additional Surgical History: cardiac stents - Social History Smoking Status: Never Smoker Substance Use Type: None, Other (Patient is an alcoholic. Last drink was 7 days ago.) - Medications Home Medications: Home Medications Medication Instructions Recorded Confirmed Last Taken Type Aspirin EC [Halfprin EC] 81 mg PO QDAY #30 tablet 04/21/21 Unknown Rx AtorvaSTATin [Lipitor] 40 mg PO QHS #30 tablet 04/21/21 Unknown Rx Losartan [Cozaar] 25 mg PO QDAY #30 tablet 04/21/21 Unknown Rx NIFEdipine XL [Procardia Xl] 30 mg PO QDAY #30 tablet 04/21/21 Unknown Rx oxyCODONE /ACETAMINOPHEN [Percocet 1 tab PO BID PRN #6 tablet 04/21/21 Unknown Rx 5/325 mg] ED Physical Exam - General Limitations: Physical Limitation General appearance: alert, in no apparent distress - Head Head exam: Present: atraumatic, normocephalic, normal inspection - Eye Eye exam: Present: normal appearance - ENT ENT exam: Present: normal exam, normal orophraynx, mucous membranes moist - Neck Neck exam: Present: normal inspection, full ROM. Absent: tenderness, meningismus - Respiratory Respiratory exam: Present: normal lung sounds bilaterally - Cardiovascular Cardiovascular Exam: Present: regular rate, normal rhythm, normal heart sounds - GI/Abdominal GI/Abdominal exam: Present: soft, normal bowel sounds. Absent: distended, tenderness, guarding, rebound, rigid, organomegaly, mass, bruit, pulsatile mass, hernia - Extremities Exam Extremities exam: Present: normal inspection, full ROM, pedal edema, other (Bilateral symmetrical swelling of both legs with pitting edema of 4+). Absent: tenderness, joint swelling, calf tenderness - Back Exam Back exam: Present: normal inspection, full ROM. Absent: CVA tenderness (R), CVA tenderness (L), muscle spasm, paraspinal tenderness, vertebral tenderness - Neurological Exam Neurological exam: Present: alert, oriented X3, CN II-XII intact, normal gait, reflexes normal. Absent: motor sensory deficit - Psychiatric Psychiatric exam: Present: normal mood - Skin Skin exam: Present: warm, intact, normal color ED Course Vital Signs 05/04/21 05/04/21 05/04/21 19:28 20:50 20:54 Temperature 98.4 F 98.0 F Pulse Rate 60 69 Respiratory 20 15 Rate Blood Pressure Blood Pressure 184/95 171/80 [Right] O2 Sat by Pulse 98 98 99 Oximetry 05/04/21 21:01 Temperature Pulse Rate 65 Respiratory 12 Rate Blood Pressure 166/83 Blood Pressure [Right] O2 Sat by Pulse 98 Oximetry ED Medical Decision Making - Lab Data Result diagrams: 05/04/21 20:05 05/04/21 20:05 - EKG Data -: EKG Interpreted by Me EKG shows normal: sinus rhythm Rate: normal - Radiology Data Radiology results: report reviewed - Medical Decision Making Patient is 65 years old male with history of congestive heart failure and hypertension. Patient presented to the ER complaining of bilateral lower extrem ity for the last few days. Patient stated that he has history of a swollen leg before but this is too much now. Patient stated that he is taking Lasix 20 mg but he admitted that he been drinking a lot of water recently. He denies any shortness of breath, chest pain, cough, fever or chills. Patient denies any other complaint. Labs reviewed and is unremarkable. Chest x-ray is negative for acute finding. Patient symptoms is most likely related to peripheral edema. I advised patient to increase his Lasix from 20 mg daily to 20 mg twice a day. Patient also advised to follow-up with his primary care physician in the next 2 to 3 days and to return to the ER if he develop any new symptoms. Critical care attestation.: If time is entered above; I have spent that time in minutes in the direct care of this critically ill patient, excluding procedure time. ED Disposition Clinical Impression: Peripheral edema Disposition: HOME / SELF CARE / HOMELESS Is pt being admited?: No Condition: Stable Instructions: Peripheral Edema Referrals: MICHAEL CARVER MD [Staff Physician] - 3-5 Days
--- NOTE | 2021-05-04 20:13 | XRay Report ---
CHEST 1 VIEW INDICATION: Dyspnea. COMPARISON: 04/19/2021 FINDINGS: SUPPORT DEVICES: None. HEART: Within normal limits. LUNGS/PLEURA: No acute air space or interstitial disease. ADDITIONAL FINDINGS: None. IMPRESSION: 1. No acute findings. Signer Name: Fredis Valdez MD Signed: 05/04/2021 8:08 PM Workstation Name: [email or web address]
[2021-05-04 21:06] LABS: Bilirubin,Urine NEG (Negative); Blood,Urine NEG (Negative); Color,Urine Yellow (Yellow); Protein,Urine <15 mg/dL mg/dL (Negative); Urobilinogen,Urine < 2.0 mg/dL (<2.0)
[2021-05-04 21:09] LABS: WBC,Urine < 1.0 /HPF (0.0-6.0)
[2021-05-04 21:11] LABS: Basophils % (Auto) 0.6 % (0.0-1.8); Eosinophils # (Auto) 0.3 K/mm3 (0.0-0.4); Eosinophils % (Auto) 4.3 % (0.0-4.3); Hematocrit 35.1 % (35.5-45.6); Hemoglobin 11.5 gm/dl (11.8-15.2); INR 0.9 (0.87-1.13); Lymphocytes # (Auto) 1.2 K/mm3 (1.2-5.4); Lymphocytes % (Auto) 18.5 % (13.4-35.0); Mean Corpuscular HGB Conc 33 % (32-34); Mean Corpuscular Volume 96 fl (84-94); Monocytes # (Auto) 0.7 K/mm3 (0.0-0.8); Monocytes % (Auto) 11.5 % (0.0-7.3); Platelet Count 237 K/mm3 (140-440); Red Blood Count 3.64 M/mm3 (3.65-5.03); Red Cell Distribution Width 13.9 % (13.2-15.2)
[2021-05-04 21:12] LABS: Partial Thromboplastin Time 31.5 Sec. (24.2-36.6)
[2021-05-04 21:18] LABS: Amphetamine Screen,Urine Negative; Benzodiazepines Screen,Urine Negative; Cocaine Screen,Urine Negative; Methadone Screen,Urine Negative; Opiate Screen,Urine Negative
[2021-05-04 21:21] LABS: Blood Urea Nitrogen 8 mg/dL (9-20); Calcium 9.1 mg/dL (8.4-10.2); Hemolysis Index 12
[2021-05-04 21:30] LABS: BUN/Creatinine Ratio 11
[2021-05-04 21:40] LABS: Cannabinoid Screen,Urine PRESUMPTIVE POSITIVE
[2021-05-04] MEDS ORDERED: FUROSEMIDE 20 MG TAB PO ONE (22:40)
[2021-05-04] MEDS ORDERED: HYDROcodone/ACETAMINOPHEN 5-325 MG TAB PO ONE (22:51)
[2021-05-05 00:11] VITALS: BP 168/79
== END 2021-05-05 03:49 | disposition home or self-care (01) ==
LOC: ED 19:17
DX: R60.0 Localized edema (principal); I10 Essential (primary) hypertension
CPT/HCPCS: 36415; 71045; 80048; 80307; 81001; 83880; 84484; 85025; 85610; 85730; 99284

== ENCOUNTER 2021-05-09 16:55 | Inpatient (IN) | payer MEDICARE ==
[2021-05-09 19:08] LABS: Alanine Aminotransferase 20 units/L (7-56); Albumin 4.3 g/dL (3.9-5); BUN/Creatinine Ratio 15; Blood Urea Nitrogen 12 mg/dL (9-20); Calcium 9.2 mg/dL (8.4-10.2); Hemolysis Index 2
[2021-05-09 19:17] LABS: Basophils % (Auto) 0.9 % (0.0-1.8); Eosinophils # (Auto) 0.3 K/mm3 (0.0-0.4); Eosinophils % (Auto) 5.6 % (0.0-4.3); Hematocrit 35.2 % (35.5-45.6); Hemoglobin 11.4 gm/dl (11.8-15.2); Lymphocytes # (Auto) 1.3 K/mm3 (1.2-5.4); Lymphocytes % (Auto) 25.6 % (13.4-35.0); Mean Corpuscular HGB Conc 33 % (32-34); Mean Corpuscular Volume 96 fl (84-94); Monocytes # (Auto) 0.5 K/mm3 (0.0-0.8); Monocytes % (Auto) 10.4 % (0.0-7.3); Platelet Count 244 K/mm3 (140-440); Red Blood Count 3.68 M/mm3 (3.65-5.03); Red Cell Distribution Width 14.3 % (13.2-15.2)
[2021-05-09] MEDS ORDERED: oxyCODONE /ACETAMINOPHEN 5-325MG TAB PO ONE (19:50)
--- NOTE | 2021-05-09 19:52 | Event Note ---
ED Screening Note Date of service: 05/09/21 Time: 19:52 ED Screening Note: Patient has history of CHF and complains of bilateral leg pain and swelling x3 weeks Patient seen here recently for the same and Lasix dose increased however patient states he has been taking the same dosage This initial assessment/diagnostic orders/clinical plan/treatment(s) is/are subject to change based on patients health status, clinical progression and re- assessment by fellow clinical providers in the ED. Further treatment and workup at subsequent clinical providers discretion. Patient/guardian urged not to elope from the ED as their condition may be serious if not clinically assessed and managed. Initial orders include: Labs Ultrasound meds
--- NOTE | 2021-05-09 21:52 | Vascular Lab Report ---
DUPLEX DOPPLER LOWER EXTREMITY VEINS, BILATERAL INDICATION / CLINICAL INFORMATION: bilateral leg swelling. TECHNIQUE: Duplex doppler imaging was performed through the veins of both lower extremities using venous nura criss and other maneuvers. COMPARISON: None available. FINDINGS: Right Common Femoral vein: Negative. Right Femoral vein: Negative. Right Popliteal vein: Negative. Right Calf veins: Negative. Left Common Femoral vein: Negative. Left Femoral vein: Negative. Left Popliteal vein: Negative. Left Calf veins: No flow visualized within the left posterior tibial vein. Additional findings: Moderate subcutaneous edema of the lower extremities. IMPRESSION: Poor flow identified within the proximal left posterior tibial vein concerning for deep vein thrombus . Signer Name: Gio Ng MD Signed: 05/09/2021 9:47 PM Workstation Name: [id number]
--- NOTE | 2021-05-09 23:00 | Emergency Department Report ---
ED General Adult HPI - General Chief complaint: Extremity Injury, Lower Stated complaint: LEGS SWELLING PUI?: No Time Seen by Provider: 05/09/21 22:00 Source: patient, EMS Mode of arrival: Ambulatory Limitations: Physical Limitation - History of Present Illness Initial comments: Chief complaint: Leg swelling HPI: This Is a 65-year-old male with history of hypertension, SC, cardiac disease status post cardiac stents, CHF, COPD who presents with bilateral leg swelling for 3-1/2 weeks. Patient never had history of leg swelling. Recently with given prescription for Lasix by outside physician. He denies chest pain or shortness of breath. Has difficulty walking. He is in severe pain. I reviewed results of echocardiogram which was obtained April 20, 2021: Borderline pulmonary hypertension with mild tricuspid regurgitation present with ventricular systolic function normal EF 55% -: Gradual, week(s) (3-1/2 weeks) Location: left, lower extremity Severity scale (0 -10): 10 Quality: burning Consistency: constant Improves with: none Worsens with: movement Associated Symptoms: other (Irritated skin) Treatments Prior to Arrival: other (EMS arrival) - Related Data Previous Rx's Medication Instructions Recorded Last Taken Type Aspirin EC [Halfprin EC] 81 mg PO QDAY #30 tablet 04/21/21 Unknown Rx AtorvaSTATin [Lipitor] 40 mg PO QHS #30 tablet 04/21/21 Unknown Rx Losartan [Cozaar] 25 mg PO QDAY #30 tablet 04/21/21 Unknown Rx NIFEdipine XL [Procardia Xl] 30 mg PO QDAY #30 tablet 04/21/21 Unknown Rx oxyCODONE /ACETAMINOPHEN [Percocet 1 tab PO BID PRN #6 tablet 04/21/21 Unknown Rx 5/325 mg] Furosemide [Lasix] 20 mg PO QDAY #30 tablet 05/04/21 Unknown Rx Allergies Allergy/AdvReac Type Severity Reaction Status Date / Time No Known Allergies Allergy Verified 04/19/21 09:15 ED Review of Systems ROS: Stated complaint: LEGS SWELLING Other details as noted in HPI Comment: All other systems reviewed and negative Constitutional: denies: chills Respiratory: denies: cough, shortness of breath Gastrointestinal: denies: abdominal pain, nausea, vomiting Skin: rash, lesions ED Past Medical Hx - Past Medical History Previous Medical History?: Yes Hx Hypertension: Yes Hx Heart Attack/AMI: Yes Hx Congestive Heart Failure: No Hx Diabetes: No Hx Deep Vein Thrombosis: No Hx Pulmonary Embolism: No Hx GERD: No Hx Liver Disease: No Hx Renal Disease: No Hx Sickle Cell Disease: No Hx Arthritis: No Hx Headaches / Migraines: No Hx Seizures: No Hx Kidney Stones: No Hx Asthma: No Hx COPD: No Hx Tuberculosis: No Hx Dementia: No Hx HIV: No Additional medical history: SC. Pancreatitis - Surgical History Past Surgical History?: Yes Hx Coronary Stent: No Hx Open Heart Surgery: No Hx Pacemaker: No Hx Internal Defibrillator: No Hx Cholecystectomy: No Hx Appendectomy: No Hx Breast Surgery: No Additional Surgical History: cardiac stents - Social History Smoking Status: Never Smoker Substance Use Type: Alcohol, Other (Patient is an alcoholic. Last drink was 7 days ago.) - Medications Home Medications: Home Medications Medication Instructions Recorded Confirmed Last Taken Type Aspirin EC [Halfprin EC] 81 mg PO QDAY #30 tablet 04/21/21 Unknown Rx AtorvaSTATin [Lipitor] 40 mg PO QHS #30 tablet 04/21/21 Unknown Rx Losartan [Cozaar] 25 mg PO QDAY #30 tablet 04/21/21 Unknown Rx NIFEdipine XL [Procardia Xl] 30 mg PO QDAY #30 tablet 04/21/21 Unknown Rx oxyCODONE /ACETAMINOPHEN [Percocet 1 tab PO BID PRN #6 tablet 04/21/21 Unknown Rx 5/325 mg] Furosemide [Lasix] 20 mg PO QDAY #30 tablet 05/04/21 Unknown Rx ED Physical Exam - General Limitations: Physical Limitation General appearance: alert, in no apparent distress - Head Head exam: Present: atraumatic, normocephalic - Eye Eye exam: Present: normal appearance - ENT ENT exam: Present: mucous membranes moist - Neck Neck exam: Present: normal inspection, full ROM - Respiratory Respiratory exam: Present: normal lung sounds bilaterally. Absent: respiratory distress, wheezes, rales, rhonchi - Cardiovascular Cardiovascular Exam: Present: regular rate, normal rhythm, normal heart sounds. Absent: systolic murmur, diastolic murmur, rubs, gallop - GI/Abdominal GI/Abdominal exam: Present: soft, normal bowel sounds. Absent: distended, tenderness, guarding, rebound - Extremities Exam Extremities exam: Present: other (Tense large edematous lower extremities from knee to toes with irritated broken skin at the dorsum aspect of both feet) - Back Exam Back exam: Present: normal inspection - Neurological Exam Neurological exam: Present: alert, oriented X3 - Psychiatric Psychiatric exam: Present: normal affect, normal mood - Skin Skin exam: Present: warm, dry, intact, normal color. Absent: rash ED Course Vital Signs 05/09/21 05/09/21 17:10 20:11 Temperature 98.3 F Pulse Rate 67 Respiratory 16 16 Rate Blood Pressure 150/92 [Left] O2 Sat by Pulse 97 Oximetry ED Medical Decision Making - Lab Data Result diagrams: 05/09/21 18:14 05/09/21 18:14 Laboratory Results - last 24 hr 05/09/21 05/09/21 18:14 18:14 WBC 5.1 RBC 3.68 Hgb 11.4 L Hct 35.2 L MCV 96 H MCH 31 MCHC 33 RDW 14.3 Plt Count 244 Lymph % (Auto) 25.6 [place] % (Auto) 10.4 H Eos % (Auto) 5.6 H Baso % (Auto) 0.9 Lymph # (Auto) 1.3 [place] # (Auto) 0.5 Eos # (Auto) 0.3 Baso # (Auto) 0.0 Seg Neutrophils % 57.5 Seg Neutrophils # 2.9 Sodium 142 Potassium 4.4 Chloride 106.6 Carbon Dioxide 25 Anion Gap 15 BUN 12 Creatinine 0.8 Estimated GFR > 60 BUN/Creatinine Ratio 15 Glucose 87 Calcium 9.2 Total Bilirubin 0.20 AST 23 ALT 20 Alkaline Phosphatase 114 NT-Pro-B Natriuret Pep 152.2 Total Protein 6.5 Albumin 4.3 Albumin/Globulin Ratio 2.0 - Radiology Data Radiology results: report reviewed Patient Name: MERARI JONES JR Gender: Male Date of : 1955 Referring Provider: CANDICE WHITMAN Organization: [facility] Accession Number: [id number] Requested Date: May 09, 2021 17:16 Report Status: Final Requested Procedure: 1 Procedure Description: VL venous duplex LE BILAT Modality: VL Findings Reporting MD: Gio Ng Dictation Time: May 09, 2021 20:47 Accounts Payable Coordinator: Not available Channel Worker Date: DUPLEX DOPPLER LOWER EXTREMITY VEINS, BILATERAL INDICATION / CLINICAL INFORMATION: bilateral leg swelling. TECHNIQUE: Duplex doppler imaging was performed through the veins of both lower extremities using venous compression and other maneuvers. COMPARISON: None available. FINDINGS: Right Common Femoral vein: Negative. Right Femoral vein: Negative. Right Popliteal vein: Negative. Right Calf veins: Negative. Left Common Femoral vein: Negative. Left Femoral vein: Negative. Left Popliteal vein: Negative. Left Calf veins: No flow visualized within the left posterior tibial vein. Additional findings: Moderate subcutaneous edema of the lower extremities. IMPRESSION: Poor flow identified within the proximal left posterior tibial vein concerning for deep vein thrombus. Signer Name: Gio Ng MD Signed: 05/09/2021 8:47 PM Workstation Name: [id number] - Medical Decision Making Bilateral lower extremity swelling severe: Patient has difficulty ambulating and performing ADLs. 10 significant edema seen on exam. I suspect right-sided heart failure also cause with pulmonary hypertension. I suspect left popliteal DVT is secondary to diagnosis. CBC chemistry BMP unremarkable. No shortness of breath currently. Admitted to the hospital service in fair condition. Patient given Eliquis and Percocet emergency department. Renal or liver disease less likely with normal values on CMP. Critical care attestation.: If time is entered above; I have spent that time in minutes in the direct care of this critically ill patient, excluding procedure time. ED Disposition Clinical Impression: Right-sided heart failure, DVT, popliteal, acute, Peripheral edema Disposition: ADMITTED INPATIENT Is pt being admited?: Yes Does the pt Need Aspirin: No Condition: Stable Referrals: MICHAEL CARVER MD [Primary Care Provider] - 3-5 Days
[2021-05-09] MEDS ORDERED: oxyCODONE /ACETAMINOPHEN 5-325MG TAB PO STA (23:01)
[2021-05-09 23:35] LABS: Hematocrit 37.1 % (35.5-45.6); Hemoglobin 12.2 gm/dl (11.8-15.2); Mean Corpuscular HGB Conc 33 % (32-34); Mean Corpuscular Volume 96 fl (84-94); Platelet Count 236 K/mm3 (140-440); Red Blood Count 3.88 M/mm3 (3.65-5.03); Red Cell Distribution Width 14.1 % (13.2-15.2)
[2021-05-09 23:43] LABS: Partial Thromboplastin Time 30.7 Sec. (24.2-36.6)
[2021-05-09] MEDS ORDERED: ONDANSETRON 4 MG/2 ML INJ IV PRN (23:51)
[2021-05-09] MEDS ORDERED: MORPHINE 4 MG/1 ML INJ IV PRN (23:51)
[2021-05-09] MEDS ORDERED: MAGNESIUM HYDROXIDE (MOM) ORAL LIQD UDC PO PRN (23:51)
[2021-05-09] MEDS ORDERED: ACETAMINOPHEN 325 MG TAB PO PRN (23:51)
[2021-05-09] MEDS: APIXABAN 5 MG TAB PO SCH (23:52)
[2021-05-09 23:58] LABS: INR 0.99 (0.87-1.13)
--- NOTE | 2021-05-09 23:59 | History and Physical Report ---
History of Present Illness Date of examination: 05/09/21 Date of admission: 05/09/2021 Chief complaint: 05/09/2021 History of present illness: 65-year-old white male with known history of hypertension, coronary artery disease with cardiac stent placement in the past, CHF and COPD presenting to the emergency room today complaining of bilateral lower extremity swelling which has been ongoing for about 3-1/2 weeks. Patient was recently given prescription for diuretics - lasix by an outside physician. He has not noticed any significant improvement. He has also been complaining of pain in his lower extremities and has not been able to ambulate well. This hospital few weeks ago during which he had an echocardiogram which reveals borderline pulmonary hypertension with mild Frasc[place]. Regurgitation. He had an EF of 55%. Recent chest x-ray done on May 04, 2021 was also within normal limits. Patient is known to use alcohol almost on a daily basis but has not been drinking over the past few weeks according to him. He also indicates that he is in the program for Work-up in the emergency room today, BNP was within normal limits -152.2. All other labs were essentially within normal limits. Ultrasound Doppler of the lower extremities reveals proximal left posterior tibial vein DVT. Patient has been started on anticoagulation with Eliquis in the emergency room. Past History Past Medical History: acute [place] ([place]), CAD, hypertension Past Surgical History: Other (Cardiac stents) Social history: other (Alcohol, Other (Patient is an alcoholic.) Family history: no significant family history Medications and Allergies Allergies Allergy/AdvReac Type Severity Reaction Status Date / Time No Known Allergies Allergy Verified 04/19/21 09:15 Home Medications Medication Instructions Recorded Confirmed Last Taken Type Aspirin EC [Halfprin EC] 81 mg PO QDAY #30 tablet 04/21/21 Unknown Rx AtorvaSTATin [Lipitor] 40 mg PO QHS #30 tablet 04/21/21 Unknown Rx Losartan [Cozaar] 25 mg PO QDAY #30 tablet 04/21/21 Unknown Rx NIFEdipine XL [Procardia Xl] 30 mg PO QDAY #30 tablet 04/21/21 Unknown Rx oxyCODONE /ACETAMINOPHEN [Percocet 1 tab PO BID PRN #6 tablet 04/21/21 Unknown Rx 5/325 mg] Furosemide [Lasix] 20 mg PO QDAY #30 tablet 05/04/21 Unknown Rx Active Meds: Active Medications Acetaminophen (Acetaminophen 325 Mg Tab) 650 mg PO Q4H PRN PRN Reason: Pain MILD(1-3)/Fever >100.5/HARRIS Apixaban (Apixaban 5 Mg Tab) 10 mg PO Q12HR [facility]; Protocol Stop: 05/16/21 10:01 Last Admin: 05/09/21 23:52 Dose: 10 mg Magnesium Hydroxide (Magnesium Hydroxide (Mom) Oral Liqd Udc) 30 ml PO Q4H PRN PRN Reason: Constipation Morphine Sulfate (Morphine 2 Mg/1 Ml Inj) 2 mg IV Q4H PRN PRN Reason: Pain, Moderate (4-6) Morphine Sulfate (Morphine 4 Mg/1 Ml Inj) 4 mg IV Q4H PRN PRN Reason: Pain , Severe (7-10) Ondansetron HCl (Ondansetron 4 Mg/2 Ml Inj) 4 mg IV Q8H PRN PRN Reason: Nausea And Vomiting Sodium Chloride (Sodium Chloride 0.9% 10 Ml Flush Syringe) 10 ml IV BID PAULA Sodium Chloride (Sodium Chloride 0.9% 10 Ml Flush Syringe) 10 ml IV PRN PRN PRN Reason: LINE FLUSH Review of Systems Constitutional: no fever, no chills Ears, nose, mouth and throat: no nasal congestion, no sore throat Cardiovascular: no chest pain, no palpitations Respiratory: no cough, no shortness of breath Exam - Constitutional Vitals: Temp Pulse Resp BP Pulse Ox 98.3 F 67 14 150/92 97 05/09/21 17:10 05/09/21 17:10 05/09/21 23:12 05/09/21 17:10 05/09/21 17:10 General appearance: Present: no acute distress, well-nourished - EENT Eyes: Present: PERRL, EOM intact. Absent: scleral icterus ENT: clear oral mucosa, dentition normal - Neck Neck: Present: supple, normal ROM - Respiratory Respiratory effort: normal Respiratory: bilateral: CTA - Cardiovascular Rhythm: regular Heart Sounds: Present: S1 & S2, systolic murmur (Soft systolic murmur). Absent: gallop, diastolic murmur, rub, click - Extremities Extremities: no ischemia, pulses intact, pulses symmetrical, normal temperature, normal color, Full ROM Extremity abnormal: edema (3+ Bilateral lower extremity edema) Peripheral Pulses: within normal limits - Abdominal General gastrointestinal: Present: soft, non-tender, non-distended, normal bowel sounds. Absent: mass - Integumentary Integumentary: Present: clear, warm, dry, normal turgor. Absent: rash - Musculoskeletal Musculoskeletal: strength equal bilaterally - Psychiatric Psychiatric: appropriate mood/affect, intact judgment & insight, memory intact, cooperative - Neurologic Neurologic: CNII-XII intact, no focal deficits, moves all extremities Results - Labs CBC & Chem 7: 05/09/21 23:09 05/09/21 23:09 Labs: Abnormal lab results 05/09/21 05/09/21 05/09/21 Range/Units 18:14 23:09 23:09 Hgb 11.4 L (11.8-15.2) gm/dl Hct 35.2 L (35.5-45.6) % MCV 96 H 96 H (84-94) fl [place] % (Auto) 10.4 H (0.0-7.3) % Eos % (Auto) 5.6 H (0.0-4.3) % Creatinine 0.7 L (0.8-1.3) mg/dL Assessment and Plan - Patient Problems (1) DVT, popliteal, acute Current Visit: Yes Status: Acute Plan to address problem: Patient started on anticoagulation with Eliquis. (2) Peripheral edema Current Visit: Yes Status: Acute Plan to address problem: Etiology is unclear. Patient placed on diuretics. Encouraged elevation of lower extremities. Will monitor inputs and outputs and also monitor daily weight. (3) CAD (coronary artery disease) Current Visit: No Status: Chronic Qualifiers: Coronary Disease-Associated Artery/Lesion type: [place] artery [place] vs. transplanted heart: [place] heart Plan to address problem: Patient had history of [place] with stent placement in the past. Stable. Continue routine home medications. (4) COPD (chronic obstructive pulmonary disease) Current Visit: No Status: Chronic Qualifiers: COPD type: unspecified COPD Qualified Code(s): J44.9 - Chronic obstructive pulmonary disease, unspecified Plan to address problem: Patient will be continued on his routine home medications. (5) HTN (hypertension) Current Visit: No Status: Chronic Qualifiers: Hypertension type: primary hypertension Qualified Code(s): I10 - Essential (primary) hypertension Plan to address problem: We will resume routine home medications and monitor vital signs closely. (6) Hyperlipidemia Current Visit: No Status: Chronic Qualifiers: Hyperlipidemia type: mixed hyperlipidemia Qualified Code(s): E78.2 - Mixed hyperlipidemia Plan to address problem: We will continue routine home medications and monitor lipid profile. (7) DVT prophylaxis Current Visit: No Status: Acute Plan to address problem: Patient placed on subcutaneous heparin. (8) Full code status Current Visit: Yes Status: Acute Plan to address problem: Patient is full code. (9) History of alcohol abuse Current Visit: Yes Status: Acute Plan to address problem: We will place on CIWA protocol.
[2021-05-10] MEDS ORDERED: LORazepam 2 MG/ML VIAL IV PRN ×2 (00:20)
[2021-05-10] MEDS: MORPHINE 2 MG/1 ML INJ IV PRN ×5 (02:14→22:13)
[2021-05-10 05:22] LABS: Blood Urea Nitrogen 11 mg/dL (9-20); Calcium 8.6 mg/dL (8.4-10.2); Hemolysis Index 6
[2021-05-10 05:25] LABS: BUN/Creatinine Ratio 16
[2021-05-10] MEDS: FUROSEMIDE 40 MG/4 ML INJ IV SCH ×2 (05:35→18:19)
[2021-05-10] MEDS: LORazepam 2 MG/ML VIAL IV PRN (05:36)
[2021-05-10] MEDS: APIXABAN 5 MG TAB PO SCH ×2 (09:05→22:25)
--- NOTE | 2021-05-10 11:13 | Progress Note ---
Assessment and Plan Assessment and plan: 65-year-old white male with known history of hypertension, coronary artery disease with cardiac stent placement in the past, CHF and COPD presenting to the emergency room today complaining of bilateral lower extremity swelling which has been ongoing for about 3-1/2 weeks. Patient was recently given prescription for diuretics - lasix by an outside physician. He has not noticed any significant improvement. He has also been complaining of pain in his lower extremities and has not been able to ambulate well. Left posterior tibial DVT Peripheral edema Coronary artery disease Chronic diastolic heart failure COPD Hypertension Hyperlipidemia History of EtOH abuse 05/10/2021. Patient will be continued on Eliquis. Etiology of lower extremity edema unclear. Patient with no evidence of heart failure exacerbation and albumin is normal. Edema may be related to DVT. PT evaluation. Anticipate discharge in a.m. History Interval history: No new issues overnight Hospitalist Physical - Constitutional Vitals: Temp Pulse Resp BP Pulse Ox 97.4 F L 59 L 18 147/84 97 05/10/21 07:41 05/10/21 10:40 05/10/21 10:40 05/10/21 07:41 05/10/21 10:40 General appearance: Present: no acute distress, well-nourished - EENT Eyes: Present: PERRL, EOM intact ENT: hearing intact, clear oral mucosa, dentition normal - Neck Neck: Present: supple, normal ROM - Respiratory Respiratory effort: normal Respiratory: bilateral: CTA - Cardiovascular Rhythm: regular Heart Sounds: Present: S1 & S2. Absent: gallop, rub - Extremities Extremities: no ischemia, No edema, Full ROM - Abdominal General gastrointestinal: soft, non-tender, non-distended, normal bowel sounds - Integumentary Integumentary: Present: clear, warm, dry - Neurologic Neurologic: CNII-XII intact, moves all extremities Results - Labs CBC & Chem 7: 05/09/21 23:09 05/10/21 04:32 Labs: Laboratory Last Values WBC 6.0 K/mm3 (4.5-11.0) 05/09/21 23:09 RBC 3.88 M/mm3 (3.65-5.03) 05/09/21 23:09 Hgb 12.2 gm/dl (11.8-15.2) 05/09/21 23:09 Hct 37.1 % (35.5-45.6) 05/09/21 23:09 MCV 96 fl (84-94) H 05/09/21 23:09 MCH 31 pg (28-32) 05/09/21 23:09 MCHC 33 % (32-34) 05/09/21 23:09 RDW 14.1 % (13.2-15.2) 05/09/21 23:09 Plt Count 236 K/mm3 (140-440) 05/09/21 23:09 Lymph % (Auto) 25.6 % (13.4-35.0) 05/09/21 18:14 [place] % (Auto) 10.4 % (0.0-7.3) H 05/09/21 18:14 Eos % (Auto) 5.6 % (0.0-4.3) H 05/09/21 18:14 Baso % (Auto) 0.9 % (0.0-1.8) 05/09/21 18:14 Lymph # (Auto) 1.3 K/mm3 (1.2-5.4) 05/09/21 18:14 [place] # (Auto) 0.5 K/mm3 (0.0-0.8) 05/09/21 18:14 Eos # (Auto) 0.3 K/mm3 (0.0-0.4) 05/09/21 18:14 Baso # (Auto) 0.0 K/mm3 (0.0-0.1) 05/09/21 18:14 Seg Neutrophils % 57.5 % (40.0-70.0) 05/09/21 18:14 Seg Neutrophils # 2.9 K/mm3 (1.8-7.7) 05/09/21 18:14 PT 14.2 Sec. (12.2-14.9) 05/09/21 23:09 INR 0.99 (0.87-1.13) 05/09/21 23:09 APTT 30.7 Sec. (24.2-36.6) 05/09/21 23:09 Sodium 141 mmol/L (137-145) 05/10/21 04:32 Potassium 3.5 mmol/L (3.6-5.0) L D 05/10/21 04:32 Chloride 104.5 mmol/L (98-107) 05/10/21 04:32 Carbon Dioxide 27 mmol/L (22-30) 05/10/21 04:32 Anion Gap 13 mmol/L 05/10/21 04:32 BUN 11 mg/dL (9-20) 05/10/21 04:32 Creatinine 0.7 mg/dL (0.8-1.3) L 05/10/21 04:32 Estimated GFR > 60 ml/min 05/10/21 04:32 BUN/Creatinine Ratio 16 % 05/10/21 04:32 Glucose 109 mg/dL (75-100) H 05/10/21 04:32 Calcium 8.6 mg/dL (8.4-10.2) 05/10/21 04:32 Total Bilirubin 0.20 mg/dL (0.1-1.2) 05/09/21 18:14 AST 23 units/L (5-40) 05/09/21 18:14 ALT 20 units/L (7-56) 05/09/21 18:14 Alkaline Phosphatase 114 units/L (35-129) 05/09/21 18:14 NT-Pro-B Natriuret Pep 152.2 pg/mL (0-900) 05/09/21 18:14 Total Protein 6.5 g/dL (6.3-8.2) 05/09/21 18:14 Albumin 4.3 g/dL (3.9-5) 05/09/21 18:14 Albumin/Globulin Ratio 2.0 % 05/09/21 18:14 Bender/IV: Voiding Method Urinal Active Medications - Current Medications Current Medications: Generic Name Dose Route Start Last Admin Trade Name Freq PRN Reason Stop Dose Admin Acetaminophen 650 mg 05/09/21 23:51 Acetaminophen 325 Mg Tab PO Q4H PRN Pain MILD(1-3)/Fever >100.5/HARRIS Apixaban 10 mg 05/09/21 23:45 05/10/21 09:05 Apixaban 5 Mg Tab PO 05/16/21 10:01 10 mg Q12HR PAULA Administration Protocol Furosemide 40 mg 05/10/21 06:00 05/10/21 05:35 Furosemide 40 Mg/4 Ml Inj IV 40 mg 0600,1800 PAULA Administration Lorazepam 2 mg 05/10/21 00:20 05/10/21 05:36 Lorazepam 2 Mg/Ml Vial IV 2 mg Q1HR PRN Administration CIWA-Ar 8-15 Lorazepam 4 mg 05/10/21 00:20 Lorazepam 2 Mg/Ml Vial IV Q1HR PRN CIWA-Ar 16-25 Lorazepam 4 mg 05/10/21 00:20 Lorazepam 2 Mg/Ml Vial IV Q15MIN PRN CIWA-Ar >25 Magnesium Hydroxide 30 ml 05/09/21 23:51 Magnesium Hydroxide (Mom) Oral Liqd Udc PO Q4H PRN Constipation Morphine Sulfate 2 mg 05/09/21 23:51 05/10/21 08:33 Morphine 2 Mg/1 Ml Inj IV 2 mg Q4H PRN Administration Pain, Moderate (4-6) Morphine Sulfate 4 mg 05/09/21 23:51 Morphine 4 Mg/1 Ml Inj IV Q4H PRN Pain , Severe (7-10) Ondansetron HCl 4 mg 05/09/21 23:51 Ondansetron 4 Mg/2 Ml Inj IV Q8H PRN Nausea And Vomiting Sodium Chloride 10 ml 05/10/21 10:00 05/10/21 09:05 Sodium Chloride 0.9% 10 Ml Flush Syringe IV 10 ml BID PAULA Administration Sodium Chloride 10 ml 05/09/21 23:51 Sodium Chloride 0.9% 10 Ml Flush Syringe IV PRN PRN LINE FLUSH
[2021-05-11] MEDS: MORPHINE 2 MG/1 ML INJ IV PRN ×3 (03:06→12:21)
[2021-05-11 05:38] LABS: Hematocrit 33.7 % (35.5-45.6); Hemoglobin 11.3 gm/dl (11.8-15.2); Mean Corpuscular HGB Conc 34 % (32-34); Mean Corpuscular Volume 95 fl (84-94); Platelet Count 203 K/mm3 (140-440); Red Blood Count 3.54 M/mm3 (3.65-5.03); Red Cell Distribution Width 14.3 % (13.2-15.2)
[2021-05-11] MEDS: FUROSEMIDE 40 MG/4 ML INJ IV SCH ×2 (07:00→18:07)
[2021-05-11] MEDS: APIXABAN 5 MG TAB PO SCH ×2 (09:37→21:44)
--- NOTE | 2021-05-11 11:29 | Progress Note ---
Assessment and Plan Assessment and plan: 65-year-old white male with known history of hypertension, coronary artery disease with cardiac stent placement in the past, CHF and COPD presenting to the emergency room today complaining of bilateral lower extremity swelling which has been ongoing for about 3-1/2 weeks. Patient was recently given prescription for diuretics - lasix by an outside physician. He has not noticed any significant improvement. He has also been complaining of pain in his lower extremities and has not been able to ambulate well. Left posterior tibial DVT Peripheral edema Coronary artery disease Chronic diastolic heart failure COPD Hypertension Hyperlipidemia History of EtOH abuse 05/10/2021. Patient will be continued on Eliquis. Etiology of lower extremity edema unclear. Patient with no evidence of heart failure exacerbation and albumin is normal. Edema may be related to DVT. PT evaluation. Anticipate discharge in a.m. 05/11/2021. Continue Eliquis for DVT. PT evaluation History Interval history: No new issues overnight Hospitalist Physical - Constitutional Vitals: Temp Pulse Resp BP Pulse Ox 97.8 F 60 18 166/85 98 05/11/21 07:20 05/11/21 10:00 05/11/21 10:00 05/11/21 07:20 05/11/21 10:00 General appearance: Present: no acute distress, well-nourished - EENT Eyes: Present: PERRL, EOM intact ENT: hearing intact, clear oral mucosa, dentition normal - Neck Neck: Present: supple, normal ROM - Respiratory Respiratory effort: normal Respiratory: bilateral: CTA - Cardiovascular Rhythm: regular Heart Sounds: Present: S1 & S2. Absent: gallop, rub - Extremities Extremities: no ischemia, No edema, Full ROM - Abdominal General gastrointestinal: soft, non-tender, non-distended, normal bowel sounds - Integumentary Integumentary: Present: clear, warm, dry - Neurologic Neurologic: CNII-XII intact, moves all extremities Results - Labs CBC & Chem 7: 05/11/21 05:17 05/10/21 04:32 Labs: Laboratory Last Values WBC 5.7 K/mm3 (4.5-11.0) 05/11/21 05:17 RBC 3.54 M/mm3 (3.65-5.03) L 05/11/21 05:17 Hgb 11.3 gm/dl (11.8-15.2) L 05/11/21 05:17 Hct 33.7 % (35.5-45.6) L 05/11/21 05:17 MCV 95 fl (84-94) H 05/11/21 05:17 MCH 32 pg (28-32) 05/11/21 05:17 MCHC 34 % (32-34) 05/11/21 05:17 RDW 14.3 % (13.2-15.2) 05/11/21 05:17 Plt Count 203 K/mm3 (140-440) 05/11/21 05:17 Lymph % (Auto) 25.6 % (13.4-35.0) 05/09/21 18:14 [place] % (Auto) 10.4 % (0.0-7.3) H 05/09/21 18:14 Eos % (Auto) 5.6 % (0.0-4.3) H 05/09/21 18:14 Baso % (Auto) 0.9 % (0.0-1.8) 05/09/21 18:14 Lymph # (Auto) 1.3 K/mm3 (1.2-5.4) 05/09/21 18:14 [place] # (Auto) 0.5 K/mm3 (0.0-0.8) 05/09/21 18:14 Eos # (Auto) 0.3 K/mm3 (0.0-0.4) 05/09/21 18:14 Baso # (Auto) 0.0 K/mm3 (0.0-0.1) 05/09/21 18:14 Seg Neutrophils % 57.5 % (40.0-70.0) 05/09/21 18:14 Seg Neutrophils # 2.9 K/mm3 (1.8-7.7) 05/09/21 18:14 PT 14.2 Sec. (12.2-14.9) 05/09/21 23:09 INR 0.99 (0.87-1.13) 05/09/21 23:09 APTT 30.7 Sec. (24.2-36.6) 05/09/21 23:09 Sodium 141 mmol/L (137-145) 05/10/21 04:32 Potassium 3.5 mmol/L (3.6-5.0) L D 05/10/21 04:32 Chloride 104.5 mmol/L (98-107) 05/10/21 04:32 Carbon Dioxide 27 mmol/L (22-30) 05/10/21 04:32 Anion Gap 13 mmol/L 05/10/21 04:32 BUN 11 mg/dL (9-20) 05/10/21 04:32 Creatinine 0.7 mg/dL (0.8-1.3) L 05/10/21 04:32 Estimated GFR > 60 ml/min 05/10/21 04:32 BUN/Creatinine Ratio 16 % 05/10/21 04:32 Glucose 109 mg/dL (75-100) H 05/10/21 04:32 Calcium 8.6 mg/dL (8.4-10.2) 05/10/21 04:32 Total Bilirubin 0.20 mg/dL (0.1-1.2) 05/09/21 18:14 AST 23 units/L (5-40) 05/09/21 18:14 ALT 20 units/L (7-56) 05/09/21 18:14 Alkaline Phosphatase 114 units/L (35-129) 05/09/21 18:14 NT-Pro-B Natriuret Pep 152.2 pg/mL (0-900) 05/09/21 18:14 Total Protein 6.5 g/dL (6.3-8.2) 05/09/21 18:14 Albumin 4.3 g/dL (3.9-5) 05/09/21 18:14 Albumin/Globulin Ratio 2.0 % 05/09/21 18:14 Bender/IV: Voiding Method Urinal Active Medications - Current Medications Current Medications: Generic Name Dose Route Start Last Admin Trade Name Freq PRN Reason Stop Dose Admin Acetaminophen 650 mg 05/09/21 23:51 Acetaminophen 325 Mg Tab PO Q4H PRN Pain MILD(1-3)/Fever >100.5/HARRIS Apixaban 10 mg 05/09/21 23:45 05/11/21 09:37 Apixaban 5 Mg Tab PO 05/16/21 10:01 10 mg Q12HR PAULA Administration Protocol Furosemide 40 mg 05/10/21 06:00 05/11/21 07:00 Furosemide 40 Mg/4 Ml Inj IV 40 mg 0600,1800 PAULA Administration Lorazepam 2 mg 05/10/21 00:20 05/10/21 05:36 Lorazepam 2 Mg/Ml Vial IV 2 mg Q1HR PRN Administration CIWA-Ar 8-15 Lorazepam 4 mg 05/10/21 00:20 Lorazepam 2 Mg/Ml Vial IV Q1HR PRN CIWA-Ar 16-25 Lorazepam 4 mg 05/10/21 00:20 Lorazepam 2 Mg/Ml Vial IV Q15MIN PRN CIWA-Ar >25 Magnesium Hydroxide 30 ml 05/09/21 23:51 Magnesium Hydroxide (Mom) Oral Liqd Udc PO Q4H PRN Constipation Morphine Sulfate 2 mg 05/09/21 23:51 05/11/21 07:21 Morphine 2 Mg/1 Ml Inj IV 2 mg Q4H PRN Administration Pain, Moderate (4-6) Morphine Sulfate 4 mg 05/09/21 23:51 Morphine 4 Mg/1 Ml Inj IV Q4H PRN Pain , Severe (7-10) Ondansetron HCl 4 mg 05/09/21 23:51 Ondansetron 4 Mg/2 Ml Inj IV Q8H PRN Nausea And Vomiting Sodium Chloride 10 ml 05/10/21 10:00 05/11/21 09:38 Sodium Chloride 0.9% 10 Ml Flush Syringe IV 10 ml BID PAULA Administration Sodium Chloride 10 ml 05/09/21 23:51 Sodium Chloride 0.9% 10 Ml Flush Syringe IV PRN PRN LINE FLUSH
--- NOTE | 2021-05-11 12:01 | XRay Report ---
CHEST 1 VIEW INDICATION / CLINICAL INFORMATION: CHF. Dyspnea FINDINGS: SUPPORT DEVICES: None. HEART / MEDIASTINUM: No significant abnormality. LUNGS / PLEURA: Streaky opacities within both lower lungs may represent early edema versus atelectasi s. Signer Name: Gio Ng MD Signed: 05/11/2021 11:56 AM Workstation Name: [id number]
[2021-05-11] MEDS: GABAPENTIN 400 MG CAP PO SCH ×2 (13:30→20:50)
[2021-05-11] MEDS: oxyCODONE /ACETAMINOPHEN 5-325MG TAB PO PRN ×2 (16:24→21:44)
[2021-05-11] MEDS: NIFEdipine XL 60 MG TAB PO SCH ×2 (18:07→21:44)
[2021-05-12] MEDS ORDERED: MELATONIN 5 MG TAB PO PRN (02:02)
[2021-05-12] MEDS: oxyCODONE /ACETAMINOPHEN 5-325MG TAB PO PRN ×3 (03:50→18:33)
[2021-05-12] MEDS: FUROSEMIDE 40 MG/4 ML INJ IV SCH ×2 (05:12→17:08)
[2021-05-12] MEDS: GABAPENTIN 400 MG CAP PO SCH ×3 (08:00→20:51)
--- NOTE | 2021-05-12 09:18 | Progress Note ---
Assessment and Plan Assessment and plan: 65-year-old white male with known history of hypertension, coronary artery disease with cardiac stent placement in the past, CHF and COPD presenting to the emergency room today complaining of bilateral lower extremity swelling which has been ongoing for about 3-1/2 weeks. Patient was recently given prescription for diuretics - lasix by an outside physician. He has not noticed any significant improvement. He has also been complaining of pain in his lower extremities and has not been able to ambulate well. Left posterior tibial DVT Peripheral edema Coronary artery disease Chronic diastolic heart failure COPD Hypertension Hyperlipidemia History of EtOH abuse 05/10/2021. Patient will be continued on Eliquis. Etiology of lower extremity edema unclear. Patient with no evidence of heart failure exacerbation and albumin is normal. Edema may be related to DVT. PT evaluation. Anticipate discharge in a.m. 05/11/2021. Continue Eliquis for DVT. PT evaluation 05/12/2021. Continue Eliquis for DVT. Await PT evaluation. History Interval history: No new issues overnight Hospitalist Physical - Constitutional Vitals: Temp Pulse Resp BP Pulse Ox 97.7 F 63 18 125/68 94 05/12/21 07:55 05/12/21 07:55 05/12/21 07:55 05/12/21 07:55 05/12/21 07:55 General appearance: Present: no acute distress, well-nourished - EENT Eyes: Present: PERRL, EOM intact ENT: hearing intact, clear oral mucosa, dentition normal - Neck Neck: Present: supple, normal ROM - Respiratory Respiratory effort: normal Respiratory: bilateral: CTA - Cardiovascular Rhythm: regular Heart Sounds: Present: S1 & S2. Absent: gallop, rub - Extremities Extremities: no ischemia, No edema, Full ROM - Abdominal General gastrointestinal: soft, non-tender, non-distended, normal bowel sounds - Integumentary Integumentary: Present: clear, warm, dry - Neurologic Neurologic: CNII-XII intact, moves all extremities Results - Labs CBC & Chem 7: 05/11/21 05:17 05/12/21 05:12 Labs: Laboratory Last Values WBC 5.7 K/mm3 (4.5-11.0) 05/11/21 05:17 RBC 3.54 M/mm3 (3.65-5.03) L 05/11/21 05:17 Hgb 11.3 gm/dl (11.8-15.2) L 05/11/21 05:17 Hct 33.7 % (35.5-45.6) L 05/11/21 05:17 MCV 95 fl (84-94) H 05/11/21 05:17 MCH 32 pg (28-32) 05/11/21 05:17 MCHC 34 % (32-34) 05/11/21 05:17 RDW 14.3 % (13.2-15.2) 05/11/21 05:17 Plt Count 203 K/mm3 (140-440) 05/11/21 05:17 Lymph % (Auto) 25.6 % (13.4-35.0) 05/09/21 18:14 [place] % (Auto) 10.4 % (0.0-7.3) H 05/09/21 18:14 Eos % (Auto) 5.6 % (0.0-4.3) H 05/09/21 18:14 Baso % (Auto) 0.9 % (0.0-1.8) 05/09/21 18:14 Lymph # (Auto) 1.3 K/mm3 (1.2-5.4) 05/09/21 18:14 [place] # (Auto) 0.5 K/mm3 (0.0-0.8) 05/09/21 18:14 Eos # (Auto) 0.3 K/mm3 (0.0-0.4) 05/09/21 18:14 Baso # (Auto) 0.0 K/mm3 (0.0-0.1) 05/09/21 18:14 Seg Neutrophils % 57.5 % (40.0-70.0) 05/09/21 18:14 Seg Neutrophils # 2.9 K/mm3 (1.8-7.7) 05/09/21 18:14 PT 14.2 Sec. (12.2-14.9) 05/09/21 23:09 INR 0.99 (0.87-1.13) 05/09/21 23:09 APTT 30.7 Sec. (24.2-36.6) 05/09/21 23:09 Sodium 141 mmol/L (137-145) 05/10/21 04:32 Potassium 3.5 mmol/L (3.6-5.0) L D 05/10/21 04:32 Chloride 104.5 mmol/L (98-107) 05/10/21 04:32 Carbon Dioxide 27 mmol/L (22-30) 05/10/21 04:32 Anion Gap 13 mmol/L 05/10/21 04:32 BUN 11 mg/dL (9-20) 05/10/21 04:32 Creatinine 0.7 mg/dL (0.8-1.3) L 05/12/21 05:12 Estimated GFR > 60 ml/min 05/12/21 05:12 BUN/Creatinine Ratio 16 % 05/10/21 04:32 Glucose 109 mg/dL (75-100) H 05/10/21 04:32 Calcium 8.6 mg/dL (8.4-10.2) 05/10/21 04:32 Total Bilirubin 0.20 mg/dL (0.1-1.2) 05/09/21 18:14 AST 23 units/L (5-40) 05/09/21 18:14 ALT 20 units/L (7-56) 05/09/21 18:14 Alkaline Phosphatase 114 units/L (35-129) 05/09/21 18:14 NT-Pro-B Natriuret Pep 152.2 pg/mL (0-900) 05/09/21 18:14 Total Protein 6.5 g/dL (6.3-8.2) 05/09/21 18:14 Albumin 4.3 g/dL (3.9-5) 05/09/21 18:14 Albumin/Globulin Ratio 2.0 % 05/09/21 18:14 Bender/IV: Voiding Method Urinal Active Medications - Current Medications Current Medications: Generic Name Dose Route Start Last Admin Trade Name Freq PRN Reason Stop Dose Admin Acetaminophen 650 mg 05/09/21 23:51 Acetaminophen 325 Mg Tab PO Q4H PRN Pain MILD(1-3)/Fever >100.5/HARRIS Apixaban 10 mg 05/09/21 23:45 05/11/21 21:44 Apixaban 5 Mg Tab PO 05/16/21 10:01 10 mg Q12HR PAULA Administration Protocol Furosemide 40 mg 05/10/21 06:00 03/21/22 05:12 Furosemide 40 Mg/4 Ml Inj IV 40 mg 0600,1800 PAULA Administration Gabapentin 800 mg 05/11/21 14:00 05/12/21 08:00 Gabapentin 400 Mg Cap PO 800 mg TID PAULA Administration Lorazepam 2 mg 05/10/21 00:20 05/10/21 05:36 Lorazepam 2 Mg/Ml Vial IV 2 mg Q1HR PRN Administration CIWA-Ar 8-15 Lorazepam 4 mg 05/10/21 00:20 Lorazepam 2 Mg/Ml Vial IV Q1HR PRN CIWA-Ar 16-25 Lorazepam 4 mg 05/10/21 00:20 Lorazepam 2 Mg/Ml Vial IV Q15MIN PRN CIWA-Ar >25 Magnesium Hydroxide 30 ml 05/09/21 23:51 Magnesium Hydroxide (Mom) Oral Liqd Udc PO Q4H PRN Constipation Melatonin 5 mg 05/12/21 02:02 05/12/21 02:21 Melatonin 5 Mg Tab PO 5 mg QHS PRN Administration Sleep Morphine Sulfate 2 mg 05/09/21 23:51 05/11/21 12:21 Morphine 2 Mg/1 Ml Inj IV 2 mg Q4H PRN Administration Pain, Moderate (4-6) Morphine Sulfate 4 mg 05/09/21 23:51 Morphine 4 Mg/1 Ml Inj IV Q4H PRN Pain , Severe (7-10) Nifedipine 60 mg 05/11/21 17:49 05/11/21 21:44 Nifedipine Xl 60 Mg Tab PO 60 mg Q12HR PAULA Administration Ondansetron HCl 4 mg 05/09/21 23:51 Ondansetron 4 Mg/2 Ml Inj IV Q8H PRN Nausea And Vomiting Oxycodone/Acetaminophen 1 tab 05/11/21 13:00 05/12/21 03:50 Oxycodone /Acetaminophen 5-325mg Tab PO 1 tab Q6H PRN Administration Pain, Moderate (4-6) Sodium Chloride 10 ml 05/10/21 10:00 05/11/21 21:44 Sodium Chloride 0.9% 10 Ml Flush Syringe IV 10 ml BID PAULA Administration Sodium Chloride 10 ml 05/09/21 23:51 Sodium Chloride 0.9% 10 Ml Flush Syringe IV PRN PRN LINE FLUSH
[2021-05-12] MEDS: APIXABAN 5 MG TAB PO SCH ×2 (09:38→21:03)
[2021-05-12] MEDS: NIFEdipine XL 60 MG TAB PO SCH ×2 (09:39→21:03)
[2021-05-12] MEDS: MORPHINE 2 MG/1 ML INJ IV PRN (09:42)
[2021-05-12] MEDS: LORazepam 2 MG/ML VIAL IV PRN (22:26)
[2021-05-13] MEDS: oxyCODONE /ACETAMINOPHEN 5-325MG TAB PO PRN ×3 (01:55→13:54)
[2021-05-13] MEDS: FUROSEMIDE 40 MG/4 ML INJ IV SCH (07:42)
[2021-05-13 08:03] LABS: Hematocrit 37.3 % (35.5-45.6); Hemoglobin 12.3 gm/dl (11.8-15.2); Mean Corpuscular HGB Conc 33 % (32-34); Mean Corpuscular Volume 96 fl (84-94); Platelet Count 248 K/mm3 (140-440); Red Cell Distribution Width 14.1 % (13.2-15.2)
[2021-05-13] MEDS: NIFEdipine XL 60 MG TAB PO SCH (09:11)
[2021-05-13] MEDS: GABAPENTIN 400 MG CAP PO SCH ×2 (09:11→13:54)
[2021-05-13] MEDS: APIXABAN 5 MG TAB PO SCH (09:12)
--- NOTE | 2021-05-13 09:32 | Progress Note ---
Assessment and Plan Assessment and plan: 65-year-old white male with known history of hypertension, coronary artery disease with cardiac stent placement in the past, CHF and COPD presenting to the emergency room today complaining of bilateral lower extremity swelling which has been ongoing for about 3-1/2 weeks. Patient was recently given prescription for diuretics - lasix by an outside physician. He has not noticed any significant improvement. He has also been complaining of pain in his lower extremities and has not been able to ambulate well. Left posterior tibial DVT Peripheral edema Coronary artery disease Chronic diastolic heart failure COPD Hypertension Hyperlipidemia History of EtOH abuse 05/10/2021. Patient will be continued on Eliquis. Etiology of lower extremity edema unclear. Patient with no evidence of heart failure exacerbation and albumin is normal. Edema may be related to DVT. PT evaluation. Anticipate discharge in a.m. 05/11/2021. Continue Eliquis for DVT. PT evaluation 05/12/2021. Continue Eliquis for DVT. Await PT evaluation. Hospitalist Physical - Constitutional Vitals: Temp Pulse Resp BP Pulse Ox 98.0 F 75 22 114/60 93 05/13/21 08:05 05/13/21 08:05 05/13/21 08:05 05/13/21 08:05 05/13/21 08:05 General appearance: Present: no acute distress, well-nourished Results - Labs CBC & Chem 7: 05/13/21 07:40 05/12/21 05:12 Labs: Laboratory Last Values WBC 6.5 K/mm3 (4.5-11.0) 05/13/21 07:40 RBC 3.90 M/mm3 (3.65-5.03) 05/13/21 07:40 Hgb 12.3 gm/dl (11.8-15.2) 05/13/21 07:40 Hct 37.3 % (35.5-45.6) 05/13/21 07:40 MCV 96 fl (84-94) H 05/13/21 07:40 MCH 32 pg (28-32) 05/13/21 07:40 MCHC 33 % (32-34) 05/13/21 07:40 RDW 14.1 % (13.2-15.2) 05/13/21 07:40 Plt Count 248 K/mm3 (140-440) 05/13/21 07:40 Lymph % (Auto) 25.6 % (13.4-35.0) 05/09/21 18:14 [place] % (Auto) 10.4 % (0.0-7.3) H 05/09/21 18:14 Eos % (Auto) 5.6 % (0.0-4.3) H 05/09/21 18:14 Baso % (Auto) 0.9 % (0.0-1.8) 05/09/21 18:14 Lymph # (Auto) 1.3 K/mm3 (1.2-5.4) 05/09/21 18:14 [place] # (Auto) 0.5 K/mm3 (0.0-0.8) 05/09/21 18:14 Eos # (Auto) 0.3 K/mm3 (0.0-0.4) 05/09/21 18:14 Baso # (Auto) 0.0 K/mm3 (0.0-0.1) 05/09/21 18:14 Seg Neutrophils % 57.5 % (40.0-70.0) 05/09/21 18:14 Seg Neutrophils # 2.9 K/mm3 (1.8-7.7) 05/09/21 18:14 PT 14.2 Sec. (12.2-14.9) 05/09/21 23:09 INR 0.99 (0.87-1.13) 05/09/21 23:09 APTT 30.7 Sec. (24.2-36.6) 05/09/21 23:09 Sodium 141 mmol/L (137-145) 05/10/21 04:32 Potassium 3.5 mmol/L (3.6-5.0) L D 05/10/21 04:32 Chloride 104.5 mmol/L (98-107) 05/10/21 04:32 Carbon Dioxide 27 mmol/L (22-30) 05/10/21 04:32 Anion Gap 13 mmol/L 05/10/21 04:32 BUN 11 mg/dL (9-20) 05/10/21 04:32 Creatinine 0.7 mg/dL (0.8-1.3) L 05/12/21 05:12 Estimated GFR > 60 ml/min 05/12/21 05:12 BUN/Creatinine Ratio 16 % 03/19/22 04:32 Glucose 109 mg/dL (75-100) H 05/10/21 04:32 Calcium 8.6 mg/dL (8.4-10.2) 05/10/21 04:32 Total Bilirubin 0.20 mg/dL (0.1-1.2) 05/09/21 18:14 AST 23 units/L (5-40) 05/09/21 18:14 ALT 20 units/L (7-56) 05/09/21 18:14 Alkaline Phosphatase 114 units/L (35-129) 05/09/21 18:14 NT-Pro-B Natriuret Pep 152.2 pg/mL (0-900) 05/09/21 18:14 Total Protein 6.5 g/dL (6.3-8.2) 05/09/21 18:14 Albumin 4.3 g/dL (3.9-5) 05/09/21 18:14 Albumin/Globulin Ratio 2.0 % 05/09/21 18:14 Bender/IV: Voiding Method Urinal Active Medications - Current Medications Current Medications: Generic Name Dose Route Start Last Admin Trade Name Freq PRN Reason Stop Dose Admin Acetaminophen 650 mg 05/09/21 23:51 Acetaminophen 325 Mg Tab PO Q4H PRN Pain MILD(1-3)/Fever >100.5/HARRIS Apixaban 10 mg 05/09/21 23:45 05/13/21 09:12 Apixaban 5 Mg Tab PO 05/16/21 10:01 10 mg Q12HR PAULA Administration Protocol Furosemide 40 mg 05/10/21 06:00 05/13/21 07:42 Furosemide 40 Mg/4 Ml Inj IV Not Given 0600,1800 PAULA Gabapentin 800 mg 05/11/21 14:00 05/13/21 09:11 Gabapentin 400 Mg Cap PO 800 mg TID PAULA Administration Lorazepam 2 mg 05/10/21 00:20 05/12/21 22:26 Lorazepam 2 Mg/Ml Vial IV 2 mg Q1HR PRN Administration CIWA-Ar 8-15 Lorazepam 4 mg 05/10/21 00:20 Lorazepam 2 Mg/Ml Vial IV Q1HR PRN CIWA-Ar 16-25 Lorazepam 4 mg 05/10/21 00:20 Lorazepam 2 Mg/Ml Vial IV Q15MIN PRN CIWA-Ar >25 Magnesium Hydroxide 30 ml 05/09/21 23:51 Magnesium Hydroxide (Mom) Oral Liqd Udc PO Q4H PRN Constipation Melatonin 5 mg 05/12/21 02:02 05/12/21 02:21 Melatonin 5 Mg Tab PO 5 mg QHS PRN Administration Sleep Morphine Sulfate 2 mg 05/09/21 23:51 05/12/21 09:42 Morphine 2 Mg/1 Ml Inj IV 2 mg Q4H PRN Administration Pain, Moderate (4-6) Morphine Sulfate 4 mg 05/09/21 23:51 Morphine 4 Mg/1 Ml Inj IV Q4H PRN Pain , Severe (7-10) Nifedipine 60 mg 05/11/21 17:49 05/13/21 09:11 Nifedipine Xl 60 Mg Tab PO 60 mg Q12HR PAULA Administration Ondansetron HCl 4 mg 05/09/21 23:51 Ondansetron 4 Mg/2 Ml Inj IV Q8H PRN Nausea And Vomiting Oxycodone/Acetaminophen 1 tab 05/11/21 13:00 05/13/21 08:07 Oxycodone /Acetaminophen 5-325mg Tab PO 1 tab Q6H PRN Administration Pain, Moderate (4-6) Sodium Chloride 10 ml 05/10/21 10:00 05/13/21 09:13 Sodium Chloride 0.9% 10 Ml Flush Syringe IV 10 ml BID PAULA Administration Sodium Chloride 10 ml 05/09/21 23:51 Sodium Chloride 0.9% 10 Ml Flush Syringe IV PRN PRN LINE FLUSH
--- NOTE | 2021-05-13 16:16 | Discharge Summary ---
Providers - Providers Date of Admission: 05/09/21 23:51 Date of discharge: 05/13/21 Attending physician: ODALYS HERNANDEZ 05/11/21 11:27 Physical Therapy Evaluation and Treat [CONS] Routine Comment: Reason For Exam: deconditioning Primary care physician: MICHAEL CARVER Hospitalization Condition: Stable Disposition: 01 HOME / SELF CARE / HOMELESS Final Discharge Diagnosis (Prints w/discharge instructions): Left posterior tibial DVT. Peripheral edema. Coronary artery disease. Chronic diastolic CHF. History of COPD. History of hypertension. History of dyslipidemia. History of alcohol abuse Time spent for discharge: 40 min Core Measure Documentation - Palliative Care Palliative Care/ Comfort Measures: Not Applicable - Core Measures Any of the following diagnoses?: DVT/PE - VTE Discharge Requirements Deep Vein Thrombosis/Pulmonary Embolism Present on Admission: Yes Has pt received <5 days of overlap therapy or INR<2.0: Yes (On Eliquis) Anticoagulant overlap therapy prescribed at discharge: No Contraindication No Overlap Therapy order at DC: Not Indicated (On Eliquis) Exam - Constitutional Vitals: Temp Pulse Resp BP Pulse Ox 98.0 F 69 20 114/60 94 05/13/21 08:05 05/13/21 10:00 05/13/21 10:00 05/13/21 08:05 05/13/21 10:00 General appearance: Present: no acute distress, well-nourished - EENT Eyes: Present: PERRL, EOM intact - Neck Neck: Present: supple, normal ROM - Respiratory Respiratory effort: normal Respiratory: bilateral: diminished, negative: rales, rhonchi, wheezing - Cardiovascular Rhythm: regular Heart Sounds: Present: S1 & S2 - Extremities Extremities: no ischemia, No edema - Abdominal General gastrointestinal: Present: soft, non-tender, non-distended, normal bowel sounds - Integumentary Integumentary: Present: clear, warm - Musculoskeletal Musculoskeletal: strength equal bilaterally - Psychiatric Psychiatric: appropriate mood/affect, cooperative - Neurologic Neurologic: CNII-XII intact, moves all extremities Plan Activity: advance as tolerated Diet: other (Cardiac diet) Additional Instructions: If you have worsening symptoms contact MD or go to the nearest emergency room as needed. If you notice any bleeding, stop Eliquis and contact MD or go to the nearest emergency room. 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 Advised to go to outpatient rehab at [facility] Follow up with: MICHAEL CARVER MD [Primary Care Provider] - 3-5 Days MIK TATE MD [Staff Physician] - 14 Days Prescriptions: Losartan [Cozaar] 25 mg PO QDAY #30 tablet Gabapentin 400 mg PO TID #60 capsule Aspirin EC [Halfprin EC] 81 mg PO QDAY #30 tablet Furosemide [Lasix TAB] 20 mg PO QDAY #30 tablet AtorvaSTATin [Lipitor] 40 mg PO QHS #30 tablet oxyCODONE /ACETAMINOPHEN [Percocet 5/325 mg] 1 tab PO BID PRN #6 tablet PRN Reason: Pain, Moderate (4-6) NIFEdipine XL [Procardia Xl] 30 mg PO QDAY #30 tablet
[2021-05-13 16:56] VITALS: BP 110/61
== END 2021-05-13 17:56 | disposition home or self-care (01) | DRG 300 ==
LOC: ED 16:55 → 4A 23:51
PROVIDERS: ADMIT Internal Medicine Geriatric Medicine; ATTEND Internal Medicine
DX: I82.442 Acute embolism and thrombosis of left tibial vein (principal); I50.32 Chronic diastolic (congestive) heart failure; I82.439 Acute embolism and thrombosis of unspecified popliteal vein; I25.10 Atherosclerotic heart disease of native coronary artery without angina pectoris; I11.0 Hypertensive heart disease with heart failure; J44.9 Chronic obstructive pulmonary disease, unspecified; E78.2 Mixed hyperlipidemia; Z79.899 Other long term (current) drug therapy; Z79.82 Long term (current) use of aspirin; Z88.8 Allergy status to other drugs, medicaments and biological substances; I25.2 Old myocardial infarction
CPT/HCPCS: 36415; 71045; 80048; 80053; 82565; 83880; 85025; 85027; 85610; 85730; 93970; G0378; J1940; J2060; J2270